=== PATIENT | male | born 1975 | race Caucasian/White ===

== ENCOUNTER 2022-03-11 11:15 | Inpatient (IN) | payer OTHER ==
[2022-03-11] MEDS ORDERED: NITROGLYCERIN SL TABS 0.4 MG TAB SUBLINGUAL STA (11:57)
--- NOTE | 2022-03-11 12:00 | ED ---
General Adult HPI - General Chief complaint: Weakness Stated complaint: rt side numbness, chest pain Time Seen by Provider: 03/11/22 11:45 Source: patient, RN notes reviewed Mode of arrival: ambulatory Limitations: no limitations - History of Present Illness Initial comments: Patient is a pleasant 46-year-old male presenting to the emergency department with concerns for right sided weakness. Onset of symptoms was 2 or 3 days ago. Patient states he has been having some chest discomfort intermittently over the past one week. As comfort is mild at this point rated 1/10. Discomfort is a chest. Patient states to 3 days ago he had problems moving his right leg, following this had problems moving his right arm. Patient states these have both been weak since that time. Patient has paresthesias there as well. No confusion. No facial weakness. Patient previously has seen Dr. Latif with cardiology. - Related Data Home Medications Medication Instructions Recorded Confirmed Fluticasone Nasal [place] [Flonase 2 spray EA NOSTRIL HS 03/11/22 03/11/22 Nasal [place]] Levothyroxine Sodium [Synthroid] 100 mcg PO DAILY 03/11/22 03/11/22 Loratadine [Claritin] 10 mg PO DAILY 03/11/22 03/11/22 Omeprazole [PriLOSEC] 20 mg PO DAILY 03/11/22 03/11/22 lisinopriL [Zestril] 10 mg PO DAILY 03/11/22 03/11/22 metFORMIN HCL [Glucophage] 1,000 mg PO BID-W/MEALS 03/11/22 03/11/22 Allergies Allergy/AdvReac Type Severity Reaction Status Date / Time amoxicillin Allergy Anaphylaxis Verified 03/11/22 12:01 shellfish derived [Shellfish] Allergy Anaphylaxis Verified 03/11/22 12:01 Review of Systems ROS Statement: Those systems with pertinent positive or pertinent negative responses have been documented in the HPI. ROS Other: All systems not noted in ROS Statement are negative. Constitutional: Denies: fever Eyes: Denies: eye pain ENT: Denies: ear pain Respiratory: Denies: cough Cardiovascular: Reports: as per HPI, chest pain Endocrine: Denies: fatigue Gastrointestinal: Denies: abdominal pain Genitourinary: Denies: dysuria Musculoskeletal: Denies: back pain Skin: Denies: rash Neurological: Reports: as per HPI, weakness. Denies: headache Past Medical History Past Medical History: Diabetes Mellitus, Hypertension History of Any Multi-Drug Resistant Organisms: None Reported Past Surgical History: No Surgical Hx Reported Smoking Status: Current every day smoker Past Alcohol Use History: None Reported Past Drug Use History: None Reported General Exam Limitations: no limitations General appearance: alert, in no apparent distress Head exam: Present: normocephalic Eye exam: Present: normal appearance, PERRL, EOMI Neck exam: Present: normal inspection. Absent: tenderness, meningismus Respiratory exam: Present: normal lung sounds bilaterally Cardiovascular Exam: Present: tachycardia Expanded Peripheral pulses: 2+: Radial (R), Radial (L), Posterior Tibialis (R), Posterior Tibialis (L), Dorsalis Pedis (R), Dorsalis Pedis (L) GI/Abdominal exam: Present: soft. Absent: tenderness Extremities exam: Present: normal inspection. Absent: pedal edema, calf tenderness Neurological exam: Present: alert, oriented X3, CN II-XII intact Expanded Neurological exam: Present: protecting the airway Speech: Present: fluid speech Cranial nerves: EOM's Intact: Normal Motor strength exam: RUE: 2/1, LUE: 5, RLE: 2/1, LLE: 5 Eye Response: (4) open spontaneously Motor Response: (6) obeys commands Verbal Response: (5) oriented Psychiatric exam: Present: normal affect, normal mood Skin exam: Present: normal color Course Vital Signs 03/11/22 03/11/22 11:25 11:50 Temperature 98.0 F Pulse Rate 119 H 96 Respiratory 18 18 Rate Blood Pressure 99/73 125/80 O2 Sat by Pulse 100 99 Oximetry - Reevaluation(s) Reevaluation #1: 03/11/22 11:58 STEMI alert was called. Dr. Boone is present and would like computed tomography scan done prior to consider catheterization 03/11/22 12:35 EKG #2 done at 1144 shows sinus tachycardia 102. Right axis. Q wave in V2 V3 with ST elevation. EKG interpreted by ED physician. 03/11/22 12:36 Call from radiologist with concern for acute subacute infarct in the left and occlusion left ICA. No evidence of aortic dissection 03/11/22 12:45 Patient currently with no chest pain. Case again discussed with Dr. Boone who does not feel patient needs to urgently go to [facility]. He does prefer patient to have heparinization. Therefore neural interventional is being contacted at this time. 03/11/22 12:54 Case was discussed with Dr. Hernandez who did evaluate the patient. Case also discussed with Dr. Falk who will review films and call back. 03/11/22 13:17 Case again discussed with Dr. Falk who does not feel patient will benefit from immediate intervention with him. He does recommend low dose heparin with no bolus. Recommend keeping PTT between 40 and 60. Also recommends aspirin, Plavix, and Lipitor. Patient again reevaluated. Patient is updated. Patient is agreeable to having heparin. Patient is made specifically aware of risk for bleeding conversion with heparin. Patient does demonstrate medical decision making. EKG Findings - EKG Results: EKG: interpreted by LILIAND (Q wave in V2 V3 with ST elevation. Right axis.), sinus rhythm EKG shows: tachycardia Medical Decision Making - Lab Data Result diagrams: 03/11/22 11:50 03/11/22 11:50 Lab Results 03/11/22 03/11/22 03/11/22 Range/Units 11:50 11:50 11:50 WBC 13.4 H (3.8-10.6) k/uL RBC 4.60 (4.30-5.90) m/uL Hgb 13.7 (13.0-17.5) gm/dL Hct 40.4 (39.0-53.0) % MCV 87.8 (80.0-100.0) fL MCH 29.7 (25.0-35.0) pg MCHC 33.9 (31.0-37.0) g/dL RDW 13.7 (11.5-15.5) % Plt Count 363 (150-450) k/uL MPV 7.9 Neutrophils % 67 % Lymphocytes % 20 % Monocytes % 9 % Eosinophils % 1 % Basophils % 1 % Neutrophils # 9.0 H (1.3-7.7) k/uL Lymphocytes # 2.7 (1.0-4.8) k/uL Monocytes # 1.2 H (0-1.0) k/uL Eosinophils # 0.2 (0-0.7) k/uL Basophils # 0.1 (0-0.2) k/uL PT 10.0 (9.0-12.0) sec INR 0.9 (<1.2) APTT 24.5 (22.0-30.0) sec Sodium 140 (137-145) mmol/L Potassium 5.3 H (3.5-5.1) mmol/L Chloride 111 H (98-107) mmol/L Carbon Dioxide 20 L (22-30) mmol/L Anion Gap 9 mmol/L BUN 18 (9-20) mg/dL Creatinine 1.01 (0.66-1.25) mg/dL Est GFR (CKD-EPI)AfAm >90 (>60 ml/min/1.73 sqM) Est GFR (CKD-EPI)NonAf 90 (>60 ml/min/1.73 sqM) Glucose 150 H (74-99) mg/dL Calcium 9.4 (8.4-10.2) mg/dL Total Bilirubin 0.9 (0.2-1.3) mg/dL AST 170 H (17-59) U/L ALT 59 H (4-49) U/L Alkaline Phosphatase 124 (38-126) U/L Troponin I (0.000-0.034) ng/mL Total Protein 8.7 H (6.3-8.2) g/dL Albumin 4.5 (3.5-5.0) g/dL 03/11/22 Range/Units 11:50 WBC (3.8-10.6) k/uL RBC (4.30-5.90) m/uL Hgb (13.0-17.5) gm/dL Hct (39.0-53.0) % MCV (80.0-100.0) fL MCH (25.0-35.0) pg MCHC (31.0-37.0) g/dL RDW (11.5-15.5) % Plt Count (150-450) k/uL MPV Neutrophils % % Lymphocytes % % Monocytes % % Eosinophils % % Basophils % % Neutrophils # (1.3-7.7) k/uL Lymphocytes # (1.0-4.8) k/uL Monocytes # (0-1.0) k/uL Eosinophils # (0-0.7) k/uL Basophils # (0-0.2) k/uL PT (9.0-12.0) sec INR (<1.2) APTT (22.0-30.0) sec Sodium (137-145) mmol/L Potassium (3.5-5.1) mmol/L Chloride (98-107) mmol/L Carbon Dioxide (22-30) mmol/L Anion Gap mmol/L BUN (9-20) mg/dL Creatinine (0.66-1.25) mg/dL Est GFR (CKD-EPI)AfAm (>60 ml/min/1.73 sqM) Est GFR (CKD-EPI)NonAf (>60 ml/min/1.73 sqM) Glucose (74-99) mg/dL Calcium (8.4-10.2) mg/dL Total Bilirubin (0.2-1.3) mg/dL AST (17-59) U/L ALT (4-49) U/L Alkaline Phosphatase (38-126) U/L Troponin I 53.000 H* (0.000-0.034) ng/mL Total Protein (6.3-8.2) g/dL Albumin (3.5-5.0) g/dL - Radiology Data Radiology results: report reviewed (CT brain as discussed with radiologist shows left sided hypodensity showing acute subacute infarct. CTA shows left internal carotid artery occlusion. Aorta without evidence of dissection.) Interpreted by me: Chest x-ray shows no acute process Critical Care Time Critical Care Time: Yes Total Critical Care Time: 55 Disposition Clinical Impression: Acute CVA (cerebrovascular accident), Myocardial infarction Disposition: ADMITTED IP TO THIS [facility] Condition: Critical Is patient prescribed a controlled substance at d/c from ED?: No Referrals: Osvaldo Carr DO [Primary Care Provider] - 1-2 days Time of Disposition: 13:19
[2022-03-11 12:05] LABS: Basophils # (A) 0.1 k/uL (0-0.2); Basophils % (A) 1 %; Eosinophils # (A) 0.2 k/uL (0-0.7); Eosinophils % (A) 1 %; HCT 40.4 % (39.0-53.0); HGB 13.7 gm/dL (13.0-17.5); Lymphocytes # (A) 2.7 k/uL (1.0-4.8); Lymphocytes % (A) 20 %; MCH 29.7 pg (25.0-35.0); MCHC 33.9 g/dL (31.0-37.0); MCV 87.8 fL (80.0-100.0); Mean Platelet Volume 7.9; Monocytes # (A) 1.2 k/uL (0-1.0); Monocytes % (A) 9 %; Neutrophils % (A) 67 %; Platelet Count 363 k/uL (150-450); RDW 13.7 % (11.5-15.5); WBC 13.4 k/uL (3.8-10.6)
--- NOTE | 2022-03-11 12:16 | P.CRDCN ---
History of Present Illness History of present illness: HISTORY OF PRESENTING ILLNESS This is a pleasant 46-year-old with past medical history significant for hypertension, diabetes mellitus type 2, tobacco abuse, family history of CAD. He follows in the office with Dr Olson. He states he has been having off-and-on chest pain over last 1 week. The chest pain started and then unfortunately he also had right upper and right lower extremity weakness. He has never had symptoms similar to this in the past. He stayed at home and was unable to walk and fell once or twice. He denies any back or head trauma. He does have a strong family history of CAD. EKG shows sinus rhythm with Q waves V1-V3 and I and aVL with ST elevations. He was given Nitro x 1 and states his chest pain has resolved. He additionally notes he has been somewhat lightheaded as well as off-balance. REVIEW OF SYSTEMS At the time of my exam: CONSTITUTIONAL: Denies fever or chills. CARDIOVASCULAR:+chest pain, no shortness of breath, orthopnea, PND or palpitations. RESPIRATORY: Denies cough. GASTROINTESTINAL: Denies abdominal pain, diarrhea, constipation, nausea or vomiting. MUSCULOSKELETAL: Denies myalgias. NEUROLOGIC: +RUE and RLE numbness ENDOCRINE: Denies fatigue, weight change, polydipsia or polyurina. GENITOURINARY: Denies burning, hematuria or urgency with micturation. HEMATOLOGIC: Denies history of anemia or bleeding. PHYSICAL EXAMINATION Vital signs reviewed. CONSTITUTIONAL: No apparent distress, +right hemiparesis HEENT: Head is normocephalic. Pupils are equal, round. Sclerae anicteric. Mucous membranes of the mouth are moist. No JVD. No carotid bruit. CHEST EXAMINATION: Lungs are clear to auscultation. No chest wall tenderness is noted on palpation or with deep breathing. HEART EXAMINATION: Regular rate and rhythm. S1, S2 heard. No murmurs, gallops or rub. ABDOMEN: Soft, nontender. Positive bowel sounds. EXTREMITIES: 2+ peripheral pulses, no lower extremity edema and no calf tenderness. NEUROLOGIC EXAMINATION: Patient is awake, alert and oriented x3. ASSESSMENT 1. Late presenting anterolateral STEMI, appears may have completed infarct with Q waves on EKG. Currently chest pain free since nitro 2. Acute right upper and lower extremity weakness most consistent with acute stroke. Rule out thromboembolism from possible apical thrombus versus other 3. Tobacco abuse 4. Strong family history CAD 5. Lightheadedness PLAN Patient with chest pain 1 week ago and EKG concerning for completed infarct. Concern of possible ischemic cardiomyopathy and apical thrombus causing thromboembolism and stroke. Patient currently chest pain-free after nitro. Chest pain may additionally be related to post infarct pain. Check urgent 2D echo. Discussed with ER physician and agree with CTA to evaluate for any dissection. If patient not having active chest pain no emergency cath. If CT brain showing no hemmorhage start heparin drip. Neurology evaluation. Further recommendations to follow. Past Medical History Past Medical History: Diabetes Mellitus, Hypertension History of Any Multi-Drug Resistant Organisms: None Reported Past Surgical History: No Surgical Hx Reported Smoking Status: Current every day smoker Past Alcohol Use History: None Reported Past Drug Use History: None Reported Medications and Allergies Allergies Allergy/AdvReac Type Severity Reaction Status Date / Time amoxicillin Allergy Anaphylaxis Verified 03/11/22 12:01 shellfish derived [Shellfish] Allergy Anaphylaxis Verified 03/11/22 12:01 Physical Exam Vitals: Vital Signs Temp Pulse Resp BP Pulse Ox 03/11/22 11:50 96 18 125/80 99 03/11/22 11:25 98.0 F 119 H 18 99/73 100 Intake and Output 03/10/22 03/11/22 03/11/22 22:59 06:59 14:59 Other: Weight 66.678 kg Results Intake and Output 03/10/22 03/11/22 03/11/22 22:59 06:59 14:59 Other: Weight 66.678 kg Patient Weight 03/12/22 06:59 Weight 66.678 kg
--- NOTE | 2022-03-11 12:17 | XR ---
EXAMINATION TYPE: XR chest 1V portable DATE OF EXAM: 03/11/2022 Comparison: 02/06/2013 Clinical History: 46-year-old male confusion, altered mental status, chest pain Findings: Multiple leads project over the chest. The cardiomediastinal silhouette, aorta, and pulmonary vascul ature are within normal limits. Lungs and pleural spaces are clear. Impression: No acute cardiopulmonary process.
--- NOTE | 2022-03-11 12:33 | CT ---
EXAMINATION TYPE: CT brain wo con for TPA DATE OF EXAM: 03/11/2022 COMPARISON: None HISTORY: 46-year-old male, Neuro deficits, acute, stroke suspected TECHNIQUE: Examination was done in axial plane without intravenous contrast. Coronal and sagittal r econstructions performed. CT DLP: 1147.6 mGycm Automated exposure control for dose reduction was used. FINDINGS: There is focal subcortical hypodensity in the posterior left parietal lobe, axial image 35. Additiona l cortical and subcortical hypodensity along the medial left frontoparietal junction and left parafal cine region as well as the adjacent lateral and superior left frontal lobe. Suggesting of an lacunar infarct in the caudate head on the left. Benign bilateral basal ganglionic c alcifications. No evidence for acute intracranial hemorrhage, mass effect, midline shift, or extra-axial fluid colle ction. No hydrocephalus. No effacement of cerebral sulci or basal subarachnoid cisterns. Slight leftward nasal septal deviation. Visualized paranasal sinuses and mastoid air cells are well p neumatized. Orbits and globes are intact. IMPRESSION: Subcortical hypodensity posterior left parietal lobe along with cortical/subcortical hypodensities me dial left frontoparietal junction, left parafalcine region, and adjacent lateral/superior left fronta l lobe. Correlate for acute to subacute infarcts. No midline shift, herniation, or acute intracranial hemorrhage. Findings called to Dr. Monaco in the ER at 12:30 PM.
[2022-03-11 12:37] LABS: ALT 59 U/L (4-49); AST 170 U/L (17-59); African American GFR (CKD) >90 (>60 ml/min/1.73 sqM); Albumin 4.5 g/dL (3.5-5.0); Alkaline Phosphatase 124 U/L (38-126); Anion Gap 9 mmol/L; Blood Urea Nitrogen 18 mg/dL (9-20); Calcium 9.4 mg/dL (8.4-10.2); Carbon Dioxide 20 mmol/L (22-30); Chloride 111 mmol/L (98-107); Glucose 150 mg/dL (74-99); Non-African American GFR(CKD) 90 (>60 ml/min/1.73 sqM); Sodium 140 mmol/L (137-145); Total Bilirubin 0.9 mg/dL (0.2-1.3); Total Protein 8.7 g/dL (6.3-8.2)
[2022-03-11 12:38] LABS: Potassium 5.3 mmol/L (3.5-5.1)
[2022-03-11 12:39] LABS: INR 0.9 (<1.2)
[2022-03-11 12:40] LABS: Partial Thromboplastin Time 24.5 sec (22.0-30.0)
--- NOTE | 2022-03-11 12:44 | CT ---
EXAMINATION TYPE: CT angio head neck DATE OF EXAM: 03/11/2022 COMPARISON: None HISTORY: 46-year-old male utilizing deficit, acute, stroke suspected. Onset symptoms 3 days ago along with chest pain. TECHNIQUE: Contiguous axial scanning of the head and neck performed with IV Contrast, patient injecte d with 85 mL of Isovue 370. Coronal/sagittal reconstructions performed. 3 reconstructions generated o n a dedicated independent workstation. CT DLP: 412.6 Automated exposure control for dose reduction was used. FINDINGS: NECK: There are some prominent lymph nodes in the [place] measuring up to 1.2 cm and subcarinal measuring 1.2 cm as well. Prominent breathing motion in the visualized upper lungs with minimal emphysematous change and mild b iapical pleural-parenchymal scarring. There is bovine configuration to the aortic arch. Of the visualized aortic arch, no aortic dissection is seen. The vertebral arteries are codominant and patent throughout the course. The right common and right internal carotid artery are widely patent by NASCET criteria. The left common carotid artery is patent. There is occlusion of the proximal left ICA, 1 cm above its origin. Nonopacification of the ICA. HEAD: The vertebral and basilar arteries as well as the remainder of the posterior circulation are patent. The right ICA it is patent. The left ICA is occluded and nonopacified through its glenoid segment. It reconstitutes from its opht halmic segment likely from collateral flow from the anterior and posterior communicating arteries. Re mainder of the anterior circulation is patent. No aneurysmal changes identified. IMPRESSION: NECK: 1. PROXIMAL LEFT ICA OCCLUSION, 1 CM ABOVE ITS ORIGIN. 2. NO AORTIC DISSECTION SEEN AT THE LEVEL OF THE AORTIC ARCH. 3. NO OTHER HEMODYNAMICALLY SIGNIFICANT CAROTID OR VERTEBRAL ARTERY STENOSIS IN THE NECK. HEAD: 4. LEFT ICA OCCLUSION BUT WITH RECONSTITUTION AT THE OPHTHALMIC SEGMENT AND DISTALLY LIKELY FROM RETR OGRADE FLOW FROM THE ANTERIOR AND POSTERIOR COMMUNICATING ARTERIES. 5. THE REMAINDER OF THE ANTERIOR AND POSTERIOR CIRCULATIONS OPACIFY NORMALLY. CRITICAL FINDINGS DISCUSSED WITH DR. CHAVEZ IN THE ER OVER THE PHONE AT 12:30 PM.
[2022-03-11] MEDS ORDERED: ASPIRIN 81 MG PO STA (13:20)
[2022-03-11] MEDS: HEPARIN SOD,PORK IN 0.45% NACL 25,000 UNIT in 0.45% NACL 1 250ML.BAG IV SCH (14:09)
[2022-03-11] MEDS ORDERED: ALPRAZolam 0.25 MG TAB PO PRN (14:09)
[2022-03-11] MEDS: CLOPIDOGREL 75 MG TAB PO SCH (14:10)
[2022-03-11] MEDS: ATORVASTATIN 80 MG TAB PO SCH (14:10)
--- NOTE | 2022-03-11 14:28 | P.CNNES ---
History of Present Illness Consult date: 03/11/22 Requesting physician: Gio Monaco Reason for Consult: cva History of Present Illness: This is a 46-year-old gentleman with history of diabetes, hypertension and tobacco use who presented because of right-sided weakness and chest pain. Time of onset is about 8 days ago. Patient noticed right lower extremity weakness about a days ago and he felt was a pinched nerve then about 3 days ago he had a fall and noticed weakness in the right upper extremity and felt that the weakness is progressively been getting worse. He also had chest pain about 8 days ago. He denies of any numbness any difficulty getting his words out any visual disturbance. Denies being on any antiplatelet or anticoagulation. He sporadically takes aspirin but not on a daily basis. He smokes close to a quater a pack a day. Because of his worsening weakness and chest pain he decided to seek medical management. Some of the workup during his hospital visit consisted of: Initial vital signs his blood pressure of 99/73, heart rate of 119, respiratory of 18, temperature of 98.0 Fahrenheit oral and pulse ox of 100% at room air. Repeated blood pressure is 135/80 Initial white blood cells 13.4 thousand minimally slightly neutrophilic Initial serum glucose is 150, AST of 170 ALT is 59 potassium 5.3. Initial troponin is 53. EKG is reported as sinus tachycardia. Anterolateral myocardial infarction probably recent. Acute MA CT of the head is reported as subcortical hypodensity posterior left parietal lobe with cortical/subcortical hypodensity medial left frontal parietal junction, left parafalcine region and adjacent to the lateral/superior left frontal lobe. Correlate for acute to subacute infarct. No midline shift. No herniation or acute intracranial hemorrhage. I personally reviewed that CT now agree with the report and I feel changes seem more subacute. CT angiography of the head is reported as proximal left ICA occlusion, 1 cm above its origin. No urinary or dissection seen at the level of the aortic arch. No other hemodynamically significant carotid or vertebral artery stenosis in the neck. CT angiography of the head is reported as left ICA occlusion but with reconstitution at the ophthalmic segment and distally likely from the retrograde flow from the anterior and posterior communicating artery. The remainder of the anterior and posterior circulation opacity normal. The ED discussed the case with the interventional neurology team (Dr. Falk) per ED notes in the interferential neurologist does not recommend any immediateintervention. Because of his elevated troponin and likely use can go for the cast he recommended the no bolus for heparin and to keep the PTT between 40 and 60. And recommended aspirin and Plavix as well as Lipitor. No IV tpa since outside the window and risk outweigh the benefit. Review of Systems Review of system: The 12 point system was reviewed and apparent positive and negative per HPI. Past Medical History Past Medical History: Diabetes Mellitus, Hypertension History of Any Multi-Drug Resistant Organisms: None Reported Past Surgical History: No Surgical Hx Reported Smoking Status: Current every day smoker Past Alcohol Use History: None Reported Past Drug Use History: None Reported Medications and Allergies Home Medications Medication Instructions Recorded Confirmed Type Fluticasone Nasal [place] [Flonase 2 spray EA NOSTRIL HS 03/11/22 03/11/22 History Nasal [place]] Levothyroxine Sodium [Synthroid] 100 mcg PO DAILY 03/11/22 03/11/22 History Loratadine [Claritin] 10 mg PO DAILY 03/11/22 03/11/22 History Omeprazole [PriLOSEC] 20 mg PO DAILY 03/11/22 03/11/22 History lisinopriL [Zestril] 10 mg PO DAILY 03/11/22 03/11/22 History metFORMIN HCL [Glucophage] 1,000 mg PO BID-W/MEALS 03/11/22 03/11/22 History Allergies Allergy/AdvReac Type Severity Reaction Status Date / Time amoxicillin Allergy Anaphylaxis Verified 03/11/22 12:01 shellfish derived [Shellfish] Allergy Anaphylaxis Verified 03/11/22 12:01 Physical Examination - Vital Signs Vital Signs: Vital Signs Temp Pulse Resp BP Pulse Ox 03/11/22 11:50 96 18 125/80 99 03/11/22 11:25 98.0 F 119 H 18 99/73 100 Intake and Output 03/10/22 03/11/22 03/11/22 22:59 06:59 14:59 Other: Weight 66.678 kg GENERAL: The patient is lying in bed and is not in acute distress. CHEST: The heart rate is regular rate rhythm. No murmurs to auscultation. LUNG: Clear to auscultation bilaterally no wheezing noted throughout. Not labored breathing. ABDOMEN/GI: Bowel sounds present in all 4 quadrants. No tenderness to palpation throughout. NEUROLOGICAL: Higher mental function: The patient is awake, alert, oriented to self, place and time. Patient is following commands. No aphasia and no neglect. Cranial nerves: The pupils are round, equal and reactive to light and accommodation. Visual banks are full to confrontation throughout. Extraocular movement is intact no nystagmus is noted. Facial sensation is normal to touch throughout. The facial strength is normal throughout. Hearing is normal bilaterally to hand rub. Tongue is midline and moved [id number] without any difficulty. No dysarthria is noted. Shoulder severely weak over the right upper while normal over the left. Motor: The strength is somewhat hard to assess since patient was agitated on performing exam. But patient hand hand movement and able to make a fist but unable to lift right upper and move it sided to side. Is able to lift right lower above gravity. Left is 5 over 5 throughout. Slightly decrease tone over the right. Normal bulk. Cerebellum: Unable to assess left because of IV line while the right is weak. Sensation: Sensation is normal to touch throughout. Reflexes (right/left): 3+ over the right while left is 2+. Plantars are upgoing bilaterally. Results - Laboratory Findings CBC and BMP: 03/11/22 11:50 03/11/22 11:50 Abnormal Lab Findings: Abnormal Labs 03/11/22 03/11/22 03/11/22 11:50 11:50 11:50 WBC 13.4 H Neutrophils # 9.0 H Monocytes # 1.2 H Potassium 5.3 H Chloride 111 H Carbon Dioxide 20 L Glucose 150 H AST 170 H ALT 59 H Troponin I 53.000 H* Total Protein 8.7 H Assessment and Plan Assessment: This is a 46-year-old gentleman with weakness of the right side initially started with the right lower about a days ago with a progressively worsened to the right upper and had a fall about 3 days ago as a result as well as he has chest pain for the past 8 days. Acute to subacute ischemic stroke (feel more subacute). Presented with right sided hemiparesis about 8 days (right upper is worse than lower). Etiology seems embolic (artery to artery vs cardiac). 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 Patient is currently on aspirin 325 daily as well as Plavix 75 mg daily both the new (recommend by interventional neurologist, Dr. Falk). Also on Lipitor 80mg daily. Also was recommended by the neuro interventional to pursue with heparin drip if needed but to avoid boluses and keep the PTT between 40 and 60. Will try to obtain MRI Brain and if not will get repeat CT by tomorrow. Consulted vascular surgery team I'll get a carotid duplex 2-D echo, lipid panel is ordered. PT OT and GAMEROOM TECHNICIAN are consulted Continue neuro checks On cardiac Cardiology is on board Patient is counseled on tobacco cessation. For DVT prophylaxis patient is on heparin drip. Condition is very guarded The plan is discussed with patient and his brother (who is at bedside). Also discussed with N.P. from vascular surgery team. Thank you for the consultation Time with Patient: Greater than 30
--- NOTE | 2022-03-11 14:45 | P.GSCN ---
History of Present Illness Consult date: 03/11/22 Reason for Consult: Carotid stenosis Requesting physician: Edgardo Muñiz History of present illness: This is a 46-year-old male who presented to the emergency department with complaints of right-sided weakness and chest pain. Patient states chest pain began about 8 days ago, and was intermittent. He then had right lower extremity weakness that continued, which he thought was a pinched nerve. About 3 days ago he had chest pain again, continued weakness in the right lower extremity he fell and then followed by right upper extremity weakness and flaccidity. He denies any previous past medical history, he smokes about 5-6 cigarettes a day. On admission he was noted to have abnormal EKG with EKG infarct, STEMI. Cardiology is following closely. They are starting patient on a heparin drip. Patient currently denies any chest pain, he was given nitro in the ER and states chest pain pressure had resolved. She had a CT of the brain reporting left infarct frontoparietal lobe. CT angiogram head and neck, shows that the right ICA is patent, left ICA is occluded 1 cm above the origin. Vascular surgery was co nsulted for ICA stenosis. He currently has no mobility of his right upper extremity, he is able to make his hand into a fist but that is all. His right lower extremity he is able to move and flex that knee and ankle. He is having difficulty with raising off the bed. Patient has facial symmetry, speech is fluent and he states he is not having any difficulty with drinking. He denies any other focal deficits such as vision loss, difficulty with his speech or difficulty swallowing. Review of Systems A 14 point review systems was completed all pertinent positives and negatives as stated in the HPI. Past Medical History Past Medical History: Diabetes Mellitus, Hypertension History of Any Multi-Drug Resistant Organisms: None Reported Past Surgical History: No Surgical Hx Reported Smoking Status: Current every day smoker Past Alcohol Use History: None Reported Past Drug Use History: None Reported Medications and Allergies Home Medications Medication Instructions Recorded Confirmed Type Fluticasone Nasal [place] [Flonase 2 spray EA NOSTRIL HS 03/11/22 03/11/22 History Nasal [place]] Levothyroxine Sodium [Synthroid] 100 mcg PO DAILY 03/11/22 03/11/22 History Loratadine [Claritin] 10 mg PO DAILY 03/11/22 03/11/22 History Omeprazole [PriLOSEC] 20 mg PO DAILY 03/11/22 03/11/22 History lisinopriL [Zestril] 10 mg PO DAILY 03/11/22 03/11/22 History metFORMIN HCL [Glucophage] 1,000 mg PO BID-W/MEALS 03/11/22 03/11/22 History Allergies Allergy/AdvReac Type Severity Reaction Status Date / Time amoxicillin Allergy Anaphylaxis Verified 03/11/22 12:01 shellfish derived [Shellfish] Allergy Anaphylaxis Verified 03/11/22 12:01 Surgical - Exam Vital Signs Temp Pulse Resp BP Pulse Ox 98.0 F 119 H 18 99/73 100 03/11/22 11:25 03/11/22 11:25 03/11/22 11:25 03/11/22 11:25 03/11/22 11:25 General appearance: The patient is alert, oriented, appears in no acute distress. HET: Head is normocephalic and atraumatic. Pupils are equal and reactive. Neck: Supple without lymphadenopathy. Trachea midline. No audible carotid bruit. Heart: Regular. Lungs: Equal expansion, normal respiratory effort. Abdomen: Soft, nontender, nondistended. Extremities: Normal skin color and turgor. No cyanosis, rash, ulceration, clubbing, or edema. Neurological: Right upper extremity flaccid, patient is able to make of this. Right lower extremity weakness is able to flex ankle and knee. Patient has facial symmetry, tongue protrudes midline he is able to follow commands in speech is fluent. Results - Labs 03/11/22 11:50 03/11/22 11:50 Abnormal Lab Results - Last 24 Hours (Table) 03/11/22 03/11/22 03/11/22 Range/Units 11:50 11:50 11:50 WBC 13.4 H (3.8-10.6) k/uL Neutrophils # 9.0 H (1.3-7.7) k/uL Monocytes # 1.2 H (0-1.0) k/uL Potassium 5.3 H (3.5-5.1) mmol/L Chloride 111 H (98-107) mmol/L Carbon Dioxide 20 L (22-30) mmol/L Glucose 150 H (74-99) mg/dL AST 170 H (17-59) U/L ALT 59 H (4-49) U/L Troponin I 53.000 H* (0.000-0.034) ng/mL Total Protein 8.7 H (6.3-8.2) g/dL Diabetes panel 03/11/22 Range/Units 11:50 Sodium 140 (137-145) mmol/L Potassium 5.3 H (3.5-5.1) mmol/L Chloride 111 H (98-107) mmol/L Carbon Dioxide 20 L (22-30) mmol/L BUN 18 (9-20) mg/dL Creatinine 1.01 (0.66-1.25) mg/dL Glucose 150 H (74-99) mg/dL Calcium 9.4 (8.4-10.2) mg/dL AST 170 H (17-59) U/L ALT 59 H (4-49) U/L Alkaline Phosphatase 124 (38-126) U/L Total Protein 8.7 H (6.3-8.2) g/dL Albumin 4.5 (3.5-5.0) g/dL Calcium panel 03/11/22 Range/Units 11:50 Calcium 9.4 (8.4-10.2) mg/dL Albumin 4.5 (3.5-5.0) g/dL Pituitary panel 03/11/22 Range/Units 11:50 Sodium 140 (137-145) mmol/L Potassium 5.3 H (3.5-5.1) mmol/L Chloride 111 H (98-107) mmol/L Carbon Dioxide 20 L (22-30) mmol/L BUN 18 (9-20) mg/dL Creatinine 1.01 (0.66-1.25) mg/dL Glucose 150 H (74-99) mg/dL Calcium 9.4 (8.4-10.2) mg/dL Adrenal panel 03/11/22 Range/Units 11:50 Sodium 140 (137-145) mmol/L Potassium 5.3 H (3.5-5.1) mmol/L Chloride 111 H (98-107) mmol/L Carbon Dioxide 20 L (22-30) mmol/L BUN 18 (9-20) mg/dL Creatinine 1.01 (0.66-1.25) mg/dL Glucose 150 H (74-99) mg/dL Calcium 9.4 (8.4-10.2) mg/dL Total Bilirubin 0.9 (0.2-1.3) mg/dL AST 170 H (17-59) U/L ALT 59 H (4-49) U/L Alkaline Phosphatase 124 (38-126) U/L Total Protein 8.7 H (6.3-8.2) g/dL Albumin 4.5 (3.5-5.0) g/dL Assessment and Plan Assessment: 1. Right-sided weakness, hemiparesis. Acute/subaute stroke 2. Left ICA occlusion 3. STEMI 4. Tobacco abuse Plan: 1. Agree with aspirin, Plavix and high-dose statin 2. Tobacco cessation 3. Carotid duplex ordered, F carotid duplex confirms left ICA occlusion no further workup and no intervention indicated from vascular surgery 4. Continue with recommendations from neurology 5. Continue with recommendations from cardiology 6. PT/OT/ST 7. Further recommendations forthcoming from vascular surgery Thank you for this consultation, we will follow along with you. The impression and plan of care has been dictated as directed. I performed a history and examination of this patient, discussed the same with the dictator. I agree with the dictator's note ,documented as a scribe. Any additional findings or plans will be noted.
[2022-03-11 14:57] LABS: Glucose,Whole Blood 131 mg/dL (70-110)
--- NOTE | 2022-03-11 15:09 | P.CNPUL ---
History of Present Illness Consult date: 03/11/22 Requesting physician: Gio Monaco Reason for consult: other (acute CVA, icu admission.) Chief complaint: right sided weakness History of present illness: this is a 46-year-old white male with history of hypertension and diabetes, history of tobacco use, patient smokes on the average of 57 cigarettes per day. 8 days ago, the patient developed weakness in his right lower extremity, and he felt like it was a pinched nerve. 3 days ago he fell, and he noticed weakness in the right upper extremity. His weakness has been getting worse over the last few days, and the patient has been falling. Also a days ago he had an episode of chest pain. Finally the patient presented to the ER today, and he was evaluated for possible stroke. His workup in the ER included a CT of the head which showed subcortical hypodensity posterior left parietal lobe cortical subcortical hypodensity medial left frontal parietal junction consistent with subacute infarct. CT angiography of the head showed left ICA occlusion EKG showed sinus tachycardia and possible anterolateral myocardial infarction/recent. Patient was seen already by different consultants in the ER, including neurology, cardiology, and vascular surgery. I saw the patient mostly he needed to be admitted to the ICU, patient was not felt to be a candidate for thrombolytic therapy, the recommendation by neurology was to start the patient on low-dose heparin. Patient will be started on low-dose heparin, and I would accept him as an admission to the ICU. Patient is clearly outside the IV TPA window. Review of Systems constitutional: Negative HEENT: Negative Head: Negative Cardiac: Chest pain 8 days ago, no active chest pain at present no palpitations no orthopnea. Pulmonary: Negative GI: Negative Genitourinary: Negative Neurologic: As noted in HPI/right sided weakness Endocrine: History of type 2 diabetes Psychiatric: Negative hematologic: Negative no history of DVT and no history of thromboembolic disease. Past Medical History Past Medical History: Diabetes Mellitus, Hypertension History of Any Multi-Drug Resistant Organisms: None Reported Past Surgical History: No Surgical Hx Reported Smoking Status: Current every day smoker Past Alcohol Use History: None Reported Past Drug Use History: None Reported Medications and Allergies Home Medications Medication Instructions Recorded Confirmed Type Fluticasone Nasal [place] [Flonase 2 spray EA NOSTRIL HS 03/11/22 03/11/22 History Nasal [place]] Levothyroxine Sodium [Synthroid] 100 mcg PO DAILY 03/11/22 03/11/22 History Loratadine [Claritin] 10 mg PO DAILY 03/11/22 03/11/22 History Omeprazole [PriLOSEC] 20 mg PO DAILY 03/11/22 03/11/22 History lisinopriL [Zestril] 10 mg PO DAILY 03/11/22 03/11/22 History metFORMIN HCL [Glucophage] 1,000 mg PO BID-W/MEALS 03/11/22 03/11/22 History Allergies Allergy/AdvReac Type Severity Reaction Status Date / Time amoxicillin Allergy Anaphylaxis Verified 03/11/22 12:01 shellfish derived [Shellfish] Allergy Anaphylaxis Verified 03/11/22 12:01 Physical Exam Vitals: Vital Signs Temp Pulse Resp BP Pulse Ox 03/11/22 13:40 87 18 121/97 100 03/11/22 13:20 94 18 107/81 100 03/11/22 13:00 89 18 105/79 99 03/11/22 12:40 87 18 104/76 98 03/11/22 12:20 104 H 18 119/82 100 03/11/22 12:00 111 H 19 136/104 100 03/11/22 11:50 96 18 125/80 99 03/11/22 11:47 103 H 10 L 03/11/22 11:25 98.0 F 119 H 18 99/73 100 Intake and Output 03/10/22 03/11/22 03/11/22 22:59 06:59 14:59 Other: Weight 66.678 kg Physical Exam: Revealed 46-year-old white male in no distress on room air. Head: Atraumatic, normocephalic. HEENT:[Neck is supple.] [No neck masses.] [No thyromegaly.] [No JVD.] Chest: [Clear throughout, no crackles, no rhonchi, no wheezes.] Cardiac Exam: [Normal S1 and S2, no S3 gallop, no murmur.] Abdomen: [Soft, nontender, no megaly, no rebound, no guarding, normal bowel sounds.] Extremities: [No clubbing, no edema, no cyanosis.] Neurological Exam: alert oriented to place and time, follows simple instructions, no evidence of aphasia or neglect. Dense hemiplegia noted in the right upper extremity and in the right lower extremity could barely elevate right lower extremity above the gravity. Left side is basically unremarkable. Psychiatric: Normal mood, affect and normal mental status examination. Skin: No rashes. Results - Laboratory Findings CBC and BMP: 03/11/22 11:50 03/11/22 11:50 PT/INR, D-dimer PT 10.0 sec (9.0-12.0) 03/11/22 11:50 INR 0.9 (<1.2) 03/11/22 11:50 Abnormal lab findings: Abnormal Labs 03/11/22 03/11/22 03/11/22 11:50 11:50 11:50 WBC 13.4 H Neutrophils # 9.0 H Monocytes # 1.2 H Potassium 5.3 H Chloride 111 H Carbon Dioxide 20 L Glucose 150 H AST 170 H ALT 59 H Troponin I 53.000 H* Total Protein 8.7 H - Diagnostic Findings Additional studies: different studies as noted earlier in HPI Assessment and Plan Assessment: impression: Subacute ischemic stroke, presenting with right sided weakness Left internal carotid artery occlusion recent anterolateral ST elevation myocardial infarction is strongly suspected. Possible thromboembolic disease, echocardiogram is pending to rule out apical thrombus Tobacco dependence syndrome Benign essential hypertension Type 2 diabetes recommendation:patient was seen in the emergency room in trauma 1 Will admit the patient to the ICU Continue heparin continue aspirin Continue Plavix Continue nitroglycerin GI prophylaxis Resume home meds including blood pressure medication Nicotine patches Will follow closely. Time with Patient: Greater than 30
[2022-03-11] MEDS: METOPROLOL TARTRATE 25 MG TAB PO SCH ×2 (15:37→20:24)
[2022-03-11] MEDS: SODIUM CHLORIDE 0.9% 1,000 ML IV SCH ×2 (15:37→23:00)
[2022-03-11] MEDS: NICOTINE 14MG/24HR PATCH TRANSDERM SCH (15:37)
--- NOTE | 2022-03-11 18:03 | US ---
EXAMINATION TYPE: US carotid duplex BILAT DATE OF EXAM: 03/11/2022 COMPARISON: NONE CLINICAL HISTORY: right sided weakness, acute infarct. TECHNIQUE: Carotid duplex ultrasound examination. Indirect Doppler criteria was utilized. FINDINGS: EXAM MEASUREMENTS: RIGHT: Peak Systolic Velocity (PSV) cm/sec ----- Right CCA: 76.9 ----- Right ICA: 62.4 ----- Right ECA: 44.8 ICA/CCA ratio: 0.8 RIGHT: End Diastole cm/sec ----- Right CCA: 39.1 ----- Right ICA: 31.8 ----- Right ECA: 12.6 LEFT: Peak Systolic Velocity (PSV) cm/sec ----- Left CCA: 48.8 ----- Left ICA: -- ----- Left ECA: 84.5 ICA/CCA ratio: -- LEFT: End Diastole cm/sec ----- Left CCA: 17.1 ----- Left ICA: -- ----- Left ECA: 27.6 VERTEBRALS (direction of flow): Right Vertebral: Antegrade Left Vertebral: Antegrade [employer] NOTES: Occlusion of the left ICA proximal to distal. No other significant stenosis visua lized IMPRESSION: 1. Obstruction of the left internal carotid artery. Consider CTA or angiography to evaluate for criti monica stenosis. 2. Intimal thickening present bilaterally. Criteria for Assigning % of Stenosis / Diameter reduction (Estimation based on the indirect measurements of the internal carotid artery velocities (ICA PSV). 1. Normal (no stenosis)=ICA PSV < 125 cm/s: ratio < 2.0: ICA EDV<40 cm/s. 2. Less than 50% stenosis=ICA PSV < 125 cm/s: ratio < 2.0: ICA EDV<40 cm/s. 3. 50 to 69% stenosis=ICA PSV of 125 to 230 cm/s: ration 2.0 ? 4.0: ICA EDV 40-100 cm/s. 4. Greater than 70% stenosis to near occlusion= ICA PSV > 230 cm/s: ratio > 4.0: ICA EDV > 100 cm/s. 5. Near occlusion= ICA PSV velocities may be low or undetectable: variable ratio and ICA EDV. 6. Total occlusion=unable to detect flow.
[2022-03-11] MEDS: FLUTICASONE 50MCG/SPRAY NASAL 16GM EA NOSTRIL SCH (20:28)
--- NOTE | 2022-03-11 21:15 | HP ---
HISTORY AND PHYSICAL CHIEF COMPLAINT: Chest pain and right-sided weakness. HISTORY OF PRESENT ILLNESS: This 46-year-old gentleman with a past medical history of hypertension and diabetes mellitus, being followed by Dr. Carr in the outpatient setting. He complains of chest pain for the last 1 week, which was felt in the retrosternal area. The patient also noted weakness of the right side for the last 3 days. The patient came to [facility], found to have an acute ST-segment elevation myocardial infarction with acute QRS complexes and ST elevation in the anterior leads as well as subcortical hypodensity of the posterior left parietal lobe indicating acute stroke also. The patient is not a candidate for tPA. Cardiology is following the patient closely. Troponins elevated. A CT angiogram of the neck showed left carotid occlusion with some reconstitution. The patient was admitted for further evaluation and treatment. There is no history of any fever, rigors, or chills at this time. PAST MEDICAL HISTORY: Hypertension and diabetes mellitus type 2, rest of the history and rest of the chart is reviewed. HOME MEDICATIONS: Reviewed and include Synthroid, dose and rest of medications reviewed. ALLERGIES: Reviewed and include amoxicillin. FAMILY HISTORY: No history of heart diseases or strokes in the family. SOCIAL HISTORY: History of smoking, continued and ongoing. REVIEW OF SYSTEMS: A 14-point review of systems is negative except as mentioned earlier. PHYSICAL EXAMINATION: VITAL SIGNS: Pulse is 87, blood pressure 104/76, respirations 18. HEENT: Conjunctivae normal. NECK: No JVD. CARDIOVASCULAR: S1, S2. RESPIRATION: Breath sounds diminished at the bases. ABDOMEN: Soft, nontender. LEGS: No edema. NERVOUS SYSTEM: Significant weakness of the right side present. SKIN: No ulcer, rash, or bleeding. JOINTS: No active deforming arthropathy. LYMPHATICS: No lymph node palpable in neck, axillae, or groin. LABORATORY DATA: Reviewed. X-rays reviewed personally. CT scan reviewed personally. ASSESSMENT: 1. Acute right-sided stroke, caused by left hemispheric lesion. 2. Acute ST-segment elevation myocardial infarction with elevated troponin and QRS complexes in the anterior leads. 3. Hypertension. 4. Diabetes mellitus, type 2. 5. Multiple medical issues. RECOMMENDATIONS: In this 46-year-old gentleman, who presented with multiple complex medical issues, we will monitor the patient closely. Low-dose heparin has been recommended by the Neurology. The stroke code has been called and Cardiology is following the patient closely. We will also obtain a 2D echo with Doppler to rule out the possibility of any intracardiac thrombus. Otherwise, overall prognosis is extremely guarded. Vascular Surgery also will be consulted, and the patient is obviously not a candidate for any tPA at this point. Repeat cultures, and repeat labs will be ordered. Prognosis is guarded because of multiple complex medical issues. Further recommendations to follow. See orders for further details. MMODL / IJN: [id number] /
[2022-03-11] MEDS ORDERED: HEPARIN SODIUM 1,000 UN/ML (10ML VL) IV PRN (22:53)
[2022-03-12] MEDS: NITROGLYCERIN SL TABS 0.4 MG TAB SUBLINGUAL PRN (00:11)
[2022-03-12 03:59] LABS: Amphetamine Screen,Urine Not Detected (NotDetected); Barbiturate Screen,Urine Not Detected (NotDetected); Benzodiazepines Screen,Urine Not Detected (NotDetected); Cocaine Screen,Urine Not Detected (NotDetected); Methadone Screen, Urine Not Detected (NotDetected); Opiate Screen,Urine Not Detected (NotDetected); Oxycodone Screen, Urine Not Detected (NotDetected); Phencyclidine Screen,Urine Not Detected (NotDetected); Tricyclic Antidepressant,Urine Not Detected (NotDetected); Urn Cannabinoid Scrn Not Detected (NotDetected)
[2022-03-12 06:42] LABS: Basophils # (A) 0.1 k/uL (0-0.2); Basophils % (A) 1 %; Eosinophils # (A) 0.1 k/uL (0-0.7); Eosinophils % (A) 1 %; HCT 34.8 % (39.0-53.0); HGB 11.8 gm/dL (13.0-17.5); Lymphocytes # (A) 2.2 k/uL (1.0-4.8); Lymphocytes % (A) 29 %; MCH 29.9 pg (25.0-35.0); MCHC 33.8 g/dL (31.0-37.0); MCV 88.4 fL (80.0-100.0); Mean Platelet Volume 7.6; Monocytes # (A) 0.6 k/uL (0-1.0); Monocytes % (A) 8 %; Neutrophils # (A) 4.6 k/uL (1.3-7.7); Neutrophils % (A) 60 %; Platelet Count 324 k/uL (150-450); RBC 3.94 m/uL (4.30-5.90); RDW 13.6 % (11.5-15.5); WBC 7.6 k/uL (3.8-10.6)
[2022-03-12 07:00] LABS: ALT 42 U/L (4-49); AST 89 U/L (17-59); African American GFR (CKD) >90 (>60 ml/min/1.73 sqM); Albumin 3.5 g/dL (3.5-5.0); Alkaline Phosphatase 103 U/L (38-126); Anion Gap 4 mmol/L; Blood Urea Nitrogen 13 mg/dL (9-20); Calcium 8.5 mg/dL (8.4-10.2); Carbon Dioxide 24 mmol/L (22-30); Chloride 109 mmol/L (98-107); Glucose 100 mg/dL (74-99); Non-African American GFR(CKD) >90 (>60 ml/min/1.73 sqM); Potassium 3.8 mmol/L (3.5-5.1); Sodium 137 mmol/L (137-145); Total Bilirubin 0.7 mg/dL (0.2-1.3); Total Protein 6.7 g/dL (6.3-8.2)
[2022-03-12] MEDS: LEVOTHYROXINE 100 MCG TAB PO SCH (07:10)
[2022-03-12] MEDS: PANTOPRAZOLE 40 MG TABLET PO SCH (07:11)
[2022-03-12] MEDS: LORATADINE 10 MG TAB PO SCH (09:11)
[2022-03-12] MEDS: CLOPIDOGREL 75 MG TAB PO SCH (09:11)
[2022-03-12] MEDS: ASPIRIN 325 MG TAB PO SCH (09:11)
[2022-03-12] MEDS: ATORVASTATIN 80 MG TAB PO SCH (09:11)
[2022-03-12] MEDS: METOPROLOL TARTRATE 25 MG TAB PO SCH (09:12)
[2022-03-12] MEDS: SODIUM CHLORIDE 0.9% 1,000 ML IV SCH (09:13)
[2022-03-12] MEDS: NICOTINE 14MG/24HR PATCH TRANSDERM SCH (09:13)
--- NOTE | 2022-03-12 10:01 | P.PN ---
Subjective HISTORY OF PRESENTING ILLNESS This is a pleasant 46-year-old with past medical history significant for hypertension, diabetes mellitus type 2, tobacco abuse, family history of CAD. He follows in the office with Dr Olson. He states he has been having off-and-on chest pain over last 1 week. The chest pain started and then unfortunately he also had right upper and right lower extremity weakness. He has never had symptoms similar to this in the past. He stayed at home and was unable to walk and fell once or twice. He denies any back or head trauma. He does have a strong family history of CAD. EKG shows sinus rhythm with Q waves V1-V3 and I and aVL with ST elevations. He was given Nitro x 1 and states his chest pain has resolved. He additionally notes he has been somewhat lightheaded as well as off-balance. 03/12 Patient seen and examined. Patient states he is having mild improvement in his right lower extremity movement as well as right hand. He denies any shortness of breath. He did have 1 episode of chest pain overnight for approximately 15- 20 minutes and this improved with nitro. No pain since. He was started on meto prolol and blood pressures stable. CT had shown left carotid 100% occlusion and carotid ultrasound verifies 100% occlusion. No recommendations for neuro intervention. CT brain showing no bleed. He has been maintained on heparin drip PHYSICAL EXAMINATION Vital signs reviewed. CONSTITUTIONAL: No apparent distress, +right hemiparesis HEENT: Head is normocephalic. Pupils are equal, round. Sclerae anicteric. Mucous membranes of the mouth are moist. No JVD. No carotid bruit. CHEST EXAMINATION: Lungs are clear to auscultation. No chest wall tenderness is noted on palpation or with deep breathing. HEART EXAMINATION: Regular rate and rhythm. S1, S2 heard. No murmurs, gallops or rub. ABDOMEN: Soft, nontender. Positive bowel sounds. EXTREMITIES: 2+ peripheral pulses, no lower extremity edema and no calf tenderness. NEUROLOGIC EXAMINATION: Patient is awake, alert and oriented x3. ASSESSMENT 1. Late presenting anterolateral STEMI, appears may have completed infarct with Q waves on EKG however still having intermittent chest pain 2. Acute right upper and lower extremity weakness most consistent with acute stroke. 3. Tobacco abuse 4. Strong family history CAD 5. Left carotid 100% stenosis PLAN Patient was placed on heparin, aspirin and Plavix and currently relatively stable. Did have 1 episode of chest pain overnight which may be a good sign that there may be some viable tissue. Eventually patient will need heart catheterization. Some increased risk of hemorrhagic conversion with increased heparin demand during PCI. Likely heart catheterization and next 24-48 hours pending neurology recommendations. Increase metoprolol given some chest pain for antianginal purposes. Objective - Vital Signs Vital signs: Vital Signs Temp 98.4 F 03/12/22 04:00 Pulse 87 03/12/22 07:00 Resp 14 03/12/22 07:00 BP 84/51 03/12/22 07:00 Pulse Ox 98 03/12/22 07:00 FiO2 Intake & Output 03/11/22 03/12/22 03/12/22 18:59 06:59 18:59 Intake Total 400 1271.476 300 Output Total 300 580 475 Balance 100 691.476 -175 Weight 65.2 kg 67.5 kg Intake: IV 400 1200 300 Sodium Chloride 0.9% 1, 400 1200 300 000 ml @ 100 mls/hr IV . Q10H [facility] Rx#:[id number] Intake, IV Titration 71.476 Amount Heparin Sod,Pork in 0.45% 71.476 NaCl 25,000 unit In 0.45 % NaCl 1 250ml.bag @ 12 UNITS/KG/HR 8.001 mls/hr IV .Q24H [facility] Rx#: [id number] Output: Urine 300 580 475 Other: Voiding Method Urinal Urinal Urinal # Voids 1 1 1 - Labs CBC & Chem 7: 03/12/22 06:16 03/12/22 06:16 Labs: Abnormal Lab Results - Last 24 Hours (Table) 03/11/22 03/11/22 03/11/22 Range/Units 11:50 11:50 11:50 WBC 13.4 H (3.8-10.6) k/uL RBC (4.30-5.90) m/uL Hgb (13.0-17.5) gm/dL Hct (39.0-53.0) % Neutrophils # 9.0 H (1.3-7.7) k/uL Monocytes # 1.2 H (0-1.0) k/uL APTT (22.0-30.0) sec Potassium 5.3 H (3.5-5.1) mmol/L Chloride 111 H (98-107) mmol/L Carbon Dioxide 20 L (22-30) mmol/L Glucose 150 H (74-99) mg/dL POC Glucose (mg/dL) (70-110) mg/dL AST 170 H (17-59) U/L ALT 59 H (4-49) U/L Troponin I 53.000 H* (0.000-0.034) ng/mL Total Protein 8.7 H (6.3-8.2) g/dL 03/11/22 03/11/22 03/11/22 Range/Units 14:46 15:03 19:04 WBC (3.8-10.6) k/uL RBC (4.30-5.90) m/uL Hgb (13.0-17.5) gm/dL Hct (39.0-53.0) % Neutrophils # (1.3-7.7) k/uL Monocytes # (0-1.0) k/uL APTT (22.0-30.0) sec Potassium (3.5-5.1) mmol/L Chloride (98-107) mmol/L Carbon Dioxide (22-30) mmol/L Glucose (74-99) mg/dL POC Glucose (mg/dL) 131 H (70-110) mg/dL AST (17-59) U/L ALT (4-49) U/L Troponin I 57.100 H* 43.400 H* (0.000-0.034) ng/mL Total Protein (6.3-8.2) g/dL 03/11/22 03/12/22 03/12/22 Range/Units 20:18 06:16 06:16 WBC (3.8-10.6) k/uL RBC 3.94 L (4.30-5.90) m/uL Hgb 11.8 L (13.0-17.5) gm/dL Hct 34.8 L (39.0-53.0) % Neutrophils # (1.3-7.7) k/uL Monocytes # (0-1.0) k/uL APTT 32.3 H (22.0-30.0) sec Potassium (3.5-5.1) mmol/L Chloride 109 H (98-107) mmol/L Carbon Dioxide (22-30) mmol/L Glucose 100 H (74-99) mg/dL POC Glucose (mg/dL) (70-110) mg/dL AST 89 H (17-59) U/L ALT (4-49) U/L Troponin I (0.000-0.034) ng/mL Total Protein (6.3-8.2) g/dL 03/12/22 Range/Units 06:16 WBC (3.8-10.6) k/uL RBC (4.30-5.90) m/uL Hgb (13.0-17.5) gm/dL Hct (39.0-53.0) % Neutrophils # (1.3-7.7) k/uL Monocytes # (0-1.0) k/uL APTT 49.6 H (22.0-30.0) sec Potassium (3.5-5.1) mmol/L Chloride (98-107) mmol/L Carbon Dioxide (22-30) mmol/L Glucose (74-99) mg/dL POC Glucose (mg/dL) (70-110) mg/dL AST (17-59) U/L ALT (4-49) U/L Troponin I (0.000-0.034) ng/mL Total Protein (6.3-8.2) g/dL
[2022-03-12] MEDS ORDERED: METOPROLOL TARTRATE 50 MG TAB PO SCH (10:15)
[2022-03-12] MEDS ORDERED: METOPROLOL TARTRATE 25 MG TAB PO ONE (10:15)
--- NOTE | 2022-03-12 10:18 | P.PN ---
Subjective Progress Note Date: 03/12/22 Principal diagnosis: ICA occlusion Bruno was seen and examined today as a follow-up status post right hemiparesis suspected acute ischemic stroke. Patient has MRI ordered this morning. He is able to move the right lower extremity more today is able to lift it off slightly off the bed and again flex at the knee. He is able to grasp with his right hand and make a fist however he is otherwise flaccid. Speech is fluent, patient has facial symmetry and is alert and oriented 3. He is currently on a heparin drip, cardiology is following closely. Patient had a carotid duplex that again demonstrated left ICA occlusion with right ICA patency. Objective - Vital Signs Vital signs: Vital Signs Temp 98.4 F 03/12/22 04:00 Pulse 87 03/12/22 05:00 Resp 17 03/12/22 05:00 BP 103/72 03/12/22 05:00 Pulse Ox 96 03/12/22 05:00 FiO2 Intake & Output 03/11/22 03/12/22 03/12/22 18:59 06:59 18:59 Intake Total 400 1171.476 Output Total 300 380 Balance 100 791.476 Weight 65.2 kg 67.5 kg Intake: IV 400 1100 Sodium Chloride 0.9% 1, 400 1100 000 ml @ 100 mls/hr IV . Q10H [facility] Rx#:[id number] Intake, IV Titration 71.476 Amount Heparin Sod,Pork in 0.45% 71.476 NaCl 25,000 unit In 0.45 % NaCl 1 250ml.bag @ 12 UNITS/KG/HR 8.001 mls/hr IV .Q24H [facility] Rx#: [id number] Output: Urine 300 380 Other: Voiding Method Urinal Urinal # Voids 1 1 - Exam General appearance: The patient is alert, oriented, appears in no acute distress. HET: Head is normocephalic and atraumatic. Pupils are equal and reactive. Neck: Supple without lymphadenopathy. Trachea midline. No audible carotid bruit. Heart: Regular. Lungs: Equal expansion, normal respiratory effort. Abdomen: Soft, nontender, nondistended. Extremities: Normal skin color and turgor. No cyanosis, rash, ulceration, clubbing, or edema. Neurological: Right upper extremity flaccid, patient is able to make fist. Right lower extremity weakness is able to flex ankle and knee, raise slightly off bed. Patient has facial symmetry, tongue protrudes midline he is able to follow commands in speech is fluent. He is alert and oriented 3. - Labs CBC & Chem 7: 03/12/22 06:16 03/12/22 06:16 Labs: Abnormal Lab Results - Last 24 Hours (Table) 03/11/22 03/11/22 03/11/22 Range/Units 11:50 11:50 11:50 WBC 13.4 H (3.8-10.6) k/uL RBC (4.30-5.90) m/uL Hgb (13.0-17.5) gm/dL Hct (39.0-53.0) % Neutrophils # 9.0 H (1.3-7.7) k/uL Monocytes # 1.2 H (0-1.0) k/uL APTT (22.0-30.0) sec Potassium 5.3 H (3.5-5.1) mmol/L Chloride 111 H (98-107) mmol/L Carbon Dioxide 20 L (22-30) mmol/L Glucose 150 H (74-99) mg/dL POC Glucose (mg/dL) (70-110) mg/dL AST 170 H (17-59) U/L ALT 59 H (4-49) U/L Troponin I 53.000 H* (0.000-0.034) ng/mL Total Protein 8.7 H (6.3-8.2) g/dL 03/11/22 03/11/22 03/11/22 Range/Units 14:46 15:03 19:04 WBC (3.8-10.6) k/uL RBC (4.30-5.90) m/uL Hgb (13.0-17.5) gm/dL Hct (39.0-53.0) % Neutrophils # (1.3-7.7) k/uL Monocytes # (0-1.0) k/uL APTT (22.0-30.0) sec Potassium (3.5-5.1) mmol/L Chloride (98-107) mmol/L Carbon Dioxide (22-30) mmol/L Glucose (74-99) mg/dL POC Glucose (mg/dL) 131 H (70-110) mg/dL AST (17-59) U/L ALT (4-49) U/L Troponin I 57.100 H* 43.400 H* (0.000-0.034) ng/mL Total Protein (6.3-8.2) g/dL 03/11/22 03/12/22 03/12/22 Range/Units 20:18 06:16 06:16 WBC (3.8-10.6) k/uL RBC 3.94 L (4.30-5.90) m/uL Hgb 11.8 L (13.0-17.5) gm/dL Hct 34.8 L (39.0-53.0) % Neutrophils # (1.3-7.7) k/uL Monocytes # (0-1.0) k/uL APTT 32.3 H (22.0-30.0) sec Potassium (3.5-5.1) mmol/L Chloride 109 H (98-107) mmol/L Carbon Dioxide (22-30) mmol/L Glucose 100 H (74-99) mg/dL POC Glucose (mg/dL) (70-110) mg/dL AST 89 H (17-59) U/L ALT (4-49) U/L Troponin I (0.000-0.034) ng/mL Total Protein (6.3-8.2) g/dL 03/12/22 Range/Units 06:16 WBC (3.8-10.6) k/uL RBC (4.30-5.90) m/uL Hgb (13.0-17.5) gm/dL Hct (39.0-53.0) % Neutrophils # (1.3-7.7) k/uL Monocytes # (0-1.0) k/uL APTT 49.6 H (22.0-30.0) sec Potassium (3.5-5.1) mmol/L Chloride (98-107) mmol/L Carbon Dioxide (22-30) mmol/L Glucose (74-99) mg/dL POC Glucose (mg/dL) (70-110) mg/dL AST (17-59) U/L ALT (4-49) U/L Troponin I (0.000-0.034) ng/mL Total Protein (6.3-8.2) g/dL Assessment and Plan Assessment: 1. Right-sided weakness, hemiparesis. Acute/subaute stroke 2. Left ICA occlusion 3. STEMI 4. Tobacco abuse Plan: 1. Agree with aspirin, Plavix and high-dose statin 2. Tobacco cessation 3. Continue with recommendations from neurology 4. Continue with recommendations from cardiology 5. PT/OT/ST 6. There is no indication for any vascular surgical intervention for left carotid occlusion. Discuss with patient he should follow with vascular surgery for outpatient surveillance of right ICA. Thank you for this consultation, we will sign off at this time. The impression and plan of care has been dictated as directed. I performed a history and examination of this patient, discussed the same with the dictator. I agree with the dictator's note ,documented as a scribe. Any additional findings or plans will be noted.
--- NOTE | 2022-03-12 10:27 | CA ---
Transthoracic Echo Report Name: Bruno Senior Age: 46 Gender: M : 1975 Exam Date: 03/11/2022 12:18 Exam Location: [facility] Ht (in): 66 Wt (lb): 147 Ordering Physician: Ramses Boone DO ([email or web address]) Attending/Referring Phys: Insurance Policy Clerk My Piper, NATALIA Procedure CPT: Indications: re: STEMI Cardiac Hx: Technical Quality: Fair Contrast 1: [place] Total Dose (mL): 4 Contrast 2: Total Dose (mL): MEASUREMENTS (Male / Female) Normal Values 2D ECHO LV Diastolic Diameter PLAX 3.7 cm 4.2 - 5.9 / 3.9 - 5.3 cm LV Systolic Diameter PLAX 3.0 cm IVS Diastolic Thickness 0.9 cm 0.6 - 1.0 / 0.6 - 0.9 cm LVPW Diastolic Thickness 0.9 cm 0.6 - 1.0 / 0.6 - 0.9 cm LV Relative Wall Thickness 0.5 LA Systolic Diameter LX 4.2 cm 3.0 - 4.0 / 2.7 - 3.8 cm DOPPLER AV Peak Velocity 116.6 cm/s AV Peak Gradient 5.4 mmHg LVOT Peak Velocity 92.4 cm/s LVOT Peak Gradient 3.4 mmHg MV Peak Velocity 52.7 cm/s MV Peak Gradient 1.1 mmHg Mitral E Point Velocity 52.2 cm/s Mitral A Point Velocity 76.1 cm/s Mitral E to A Ratio 0.7 LV E' Lateral Velocity 4.6 cm/s Mitral E to LV E' Lateral Ratio 11.3 LV E' Septal Velocity 4.2 cm/s Mitral E to LV E' Septal Ratio 12.5 TR Peak Velocity 187.0 cm/s TR Peak Gradient 14.0 mmHg FINDINGS Left Ventricle Left ventricular wall thickness normal. [place] hypokinetic, anterior apical, inferior apical, apical septal and apical lateral wall hypokinesis. Left ventricular ejection fraction is estimated at 35-40 %. Used contrast to r/o apical thrombus. Right Ventricle Normal right ventricular size and function. Right Atrium Normal right atrial size. Left Atrium Normal left atrial size. Mitral Valve Structurally normal mitral valve. Mild mitral regurgitation. Aortic Valve No aortic valve stenosis or regurgitation. Tricuspid Valve Structurally normal tricuspid valve. Mild tricuspid regurgitation. Pulmonic Valve Trace pulmonic regurgitation. Pericardium No pericardial effusion. Aorta Normal size aortic root and proximal ascending aorta. CONCLUSIONS Impaired LV function. The EF is 35-40%. Mid ventricle and apical akinesia Previewed by: Dr. Orlando Darnell MD (Electronically Signed) Final Date: 12 March 2022 10:27
[2022-03-12] MEDS: lisinopriL 10 MG TAB PO SCH (10:33)
--- NOTE | 2022-03-12 12:07 | P.PN ---
Subjective Progress Note Date: 03/12/22 The patient is seen at bedside and feels about the same as yesterday. Per nurse he is more cooperative compared to yesterday. Per nurse, cardiology is considering taking him to cardiac cath but unknown exac tly when. Objective - Vital Signs Vital signs: Vital Signs Temp 98.0 F 03/12/22 08:00 Pulse 94 03/12/22 10:00 Resp 11 L 03/12/22 10:00 BP 109/78 03/12/22 10:00 Pulse Ox 99 03/12/22 10:00 FiO2 Intake & Output 03/11/22 03/12/22 03/12/22 18:59 06:59 18:59 Intake Total 400 1271.476 300 Output Total 300 580 475 Balance 100 691.476 -175 Weight 65.2 kg 67.5 kg Intake: IV 400 1200 300 Sodium Chloride 0.9% 1, 400 1200 300 000 ml @ 100 mls/hr IV . Q10H [facility] Rx#:[id number] Intake, IV Titration 71.476 Amount Heparin Sod,Pork in 0.45% 71.476 NaCl 25,000 unit In 0.45 % NaCl 1 250ml.bag @ 12 UNITS/KG/HR 8.001 mls/hr IV .Q24H [facility] Rx#: [id number] Output: Urine 300 580 475 Other: Voiding Method Urinal Urinal Urinal # Voids 1 1 1 - Exam GENERAL: The patient is lying in bed and is not in acute distress. NEUROLOGICAL: Higher mental function: The patient is awake, alert, oriented to self, place and time. Patient is following commands. No aphasia and no neglect. Cranial nerves: The pupils are round, equal and reactive to light and accommodation. Visual banks are full to confrontation throughout. 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 Facial sensation is normal to touch throughout. The facial strength is normal throughout. Hearing is normal bilaterally to hand rub. Tongue is midline and moved [id number] without any difficulty. No dysarthria is noted. Shoulder severely weak over the right upper while normal over the left. Motor: The strength is right hand strength is 4+ otherwise rest of right upper is 0. Right lower is right hip flexion/exntesion is 2-3, right knee is 2-3 (more 2). Right ankle is 0. Left is 5/5. Decrease tone over the right lower. Normal bulk. Cerebellum: Normal on the left but unable to assess right because of weakness. Sensation: Sensation is normal to touch throughout. Reflexes (right/left): 3+ over the right while left is 2+. Plantars are upgoing bilaterally. Some of the workup during his hospital visit consisted of: AST of 170 ALT is 59 potassium 5.3. Initial troponin is 53. Most current is 43 Urine tox screen is not detected. EKG is reported as sinus tachycardia. Anterolateral myocardial infarction probably recent. Acute NM CT of the head is reported as subcortical hypodensity posterior left parietal lobe with cortical/subcortical hypodensity medial left frontal parietal junction, left parafalcine region and adjacent to the lateral/superior left fron katherine lobe. Correlate for acute to subacute infarct. No midline shift. No herniation or acute intracranial hemorrhage. I personally reviewed that CT now agree with the report and I feel changes seem more subacute. CT angiography of the head is reported as proximal left ICA occlusion, 1 cm above its origin. No urinary or dissection seen at the level of the aortic arch. No other hemodynamically significant carotid or vertebral artery stenosis in the neck. CT angiography of the head is reported as left ICA occlusion but with reconstitution at the ophthalmic segment and distally likely from the retrograde flow from the anterior and posterior communicating artery. The remainder of the anterior and posterior circulation opacity normal. Carotid duplex: Obstruction of the left internal carotid artery. Intimal thickening present bilaterally. 2-D echo was reported as impaired left ventricular function. Ejection fraction of 35-40%. Mid ventricular and apical akinesia. - Labs CBC & Chem 7: 03/12/22 06:16 03/12/22 06:16 Labs: Abnormal Lab Results - Last 24 Hours (Table) 03/11/22 03/11/22 03/11/22 Range/Units 11:50 11:50 11:50 WBC 13.4 H (3.8-10.6) k/uL RBC (4.30-5.90) m/uL Hgb (13.0-17.5) gm/dL Hct (39.0-53.0) % Neutrophils # 9.0 H (1.3-7.7) k/uL Monocytes # 1.2 H (0-1.0) k/uL APTT (22.0-30.0) sec Potassium 5.3 H (3.5-5.1) mmol/L Chloride 111 H (98-107) mmol/L Carbon Dioxide 20 L (22-30) mmol/L Glucose 150 H (74-99) mg/dL POC Glucose (mg/dL) (70-110) mg/dL AST 170 H (17-59) U/L ALT 59 H (4-49) U/L Troponin I 53.000 H* (0.000-0.034) ng/mL Total Protein 8.7 H (6.3-8.2) g/dL 03/11/22 03/11/22 03/11/22 Range/Units 14:46 15:03 19:04 WBC (3.8-10.6) k/uL RBC (4.30-5.90) m/uL Hgb (13.0-17.5) gm/dL Hct (39.0-53.0) % Neutrophils # (1.3-7.7) k/uL Monocytes # (0-1.0) k/uL APTT (22.0-30.0) sec Potassium (3.5-5.1) mmol/L Chloride (98-107) mmol/L Carbon Dioxide (22-30) mmol/L Glucose (74-99) mg/dL POC Glucose (mg/dL) 131 H (70-110) mg/dL AST (17-59) U/L ALT (4-49) U/L Troponin I 57.100 H* 43.400 H* (0.000-0.034) ng/mL Total Protein (6.3-8.2) g/dL 03/11/22 03/12/22 03/12/22 Range/Units 20:18 06:16 06:16 WBC (3.8-10.6) k/uL RBC 3.94 L (4.30-5.90) m/uL Hgb 11.8 L (13.0-17.5) gm/dL Hct 34.8 L (39.0-53.0) % Neutrophils # (1.3-7.7) k/uL Monocytes # (0-1.0) k/uL APTT 32.3 H (22.0-30.0) sec Potassium (3.5-5.1) mmol/L Chloride 109 H (98-107) mmol/L Carbon Dioxide (22-30) mmol/L Glucose 100 H (74-99) mg/dL POC Glucose (mg/dL) (70-110) mg/dL AST 89 H (17-59) U/L ALT (4-49) U/L Troponin I (0.000-0.034) ng/mL Total Protein (6.3-8.2) g/dL 03/12/22 Range/Units 06:16 WBC (3.8-10.6) k/uL RBC (4.30-5.90) m/uL Hgb (13.0-17.5) gm/dL Hct (39.0-53.0) % Neutrophils # (1.3-7.7) k/uL Monocytes # (0-1.0) k/uL APTT 49.6 H (22.0-30.0) sec Potassium (3.5-5.1) mmol/L Chloride (98-107) mmol/L Carbon Dioxide (22-30) mmol/L Glucose (74-99) mg/dL POC Glucose (mg/dL) (70-110) mg/dL AST (17-59) U/L ALT (4-49) U/L Troponin I (0.000-0.034) ng/mL Total Protein (6.3-8.2) g/dL Assessment and Plan Assessment: This is a 46-year-old gentleman with weakness of the right side initially started about 8 days ago that is progressively worsening and then noticed right upper and had a fall about 3 days ago. Also had chest pain for the past 8 days. Acute to subacute ischemic stroke (feel more subacute). Rght sided hemiparesis and started about 8 days (right upper is worse than lower). Etiology seems embolic (artery to artery vs cardiac). Left ICA occlusion STEMI Impaired left ventricular function with ejection fraction of 35-40% Diabetes mellitus Hypertension Tobacco use Ramón family history of coronary artery disease. Plan: Continue aspirin 325mg daily as well as Plavix 75 mg daily both new for second mick stroke prophylaxis. Also on Lipitor 80mg daily. Pending MRI Brain. On heparin drip. Avoid boluses and keep the PTT between 40 and 60 from neurological perspective. Pending Lipid panel. Consulted vascular surgery team for carotid stenosis. No intervention for Left ICA since is completely occluded and they recommended outpatient surveillance of right ICA. PT OT and [facility] are consulted Cardiology is on board and considering cardiac cath. Continue neuro checks On cardiac Cardiology is on board Patient is counseled on tobacco cessation. For DVT prophylaxis patient is on heparin drip. Condition is very guarded The plan is discussed with patient and his nurse. Time with Patient: Less than 30
--- NOTE | 2022-03-12 12:17 | P.PN ---
Subjective Progress Note Date: 03/12/22 Principal diagnosis: Subacute CVA with right-sided weakness Reevaluated today on 03/12/22, patient remains in the ICU, he feels fine, continues to have weakness on the right side, his right upper extremity seems to be significantly much weaker than the right lower extremity. Patient was seen by cardiology and he is being considered for cardiac catheterization, he was also seen by neurology and the plan is to continue heparin for now. No major change in the last 24 hours, patient is hemodynamically stable. Labs done today are basically unremarkable including his CBC and his basic metabolic profile. PTT is therapeutic at 49.6. Drug screen on admission has been negative. His troponin yesterday was elevated as high as 57. Objective - Vital Signs Vital signs: Vital Signs Temp 98.0 F 03/12/22 08:00 Pulse 94 03/12/22 10:00 Resp 11 L 03/12/22 10:00 BP 109/78 03/12/22 10:00 Pulse Ox 99 03/12/22 10:00 FiO2 Intake & Output 03/11/22 03/12/22 03/12/22 18:59 06:59 18:59 Intake Total 400 1271.476 300 Output Total 300 580 475 Balance 100 691.476 -175 Weight 65.2 kg 67.5 kg Intake: IV 400 1200 300 Sodium Chloride 0.9% 1, 400 1200 300 000 ml @ 100 mls/hr IV . Q10H [facility] Rx#:[id number] Intake, IV Titration 71.476 Amount Heparin Sod,Pork in 0.45% 71.476 NaCl 25,000 unit In 0.45 % NaCl 1 250ml.bag @ 12 UNITS/KG/HR 8.001 mls/hr IV .Q24H [facility] Rx#: [id number] Output: Urine 300 580 475 Other: Voiding Method Urinal Urinal Urinal # Voids 1 1 1 - Exam Physical Exam: Revealed 46-year-old white male in no distress on room air. Head: Atraumatic, normocephalic. HEENT:[Neck is supple.] [No neck masses.] [No thyromegaly.] [No JVD.] Chest: [Clear throughout, no crackles, no rhonchi, no wheezes.] Cardiac Exam: [Normal S1 and S2, no S3 gallop, no murmur.] Abdomen: [Soft, nontender, no megaly, no rebound, no guarding, normal bowel sounds.] Extremities: [No clubbing, no edema, no cyanosis.] Neurological Exam: alert oriented to place and time, follows simple instructions, no evidence of aphasia or neglect. Dense hemiplegia noted in the right upper extremity and in the right lower extremity could barely elevate right lower extremity above the gravity. Left side is basically unremarkable. Psychiatric: Normal mood, affect and normal mental status examination. Skin: No rashes. - Labs CBC & Chem 7: 03/12/22 06:16 03/12/22 06:16 Labs: Abnormal Lab Results - Last 24 Hours (Table) 03/11/22 03/11/22 03/11/22 Range/Units 11:50 11:50 14:46 RBC (4.30-5.90) m/uL Hgb (13.0-17.5) gm/dL Hct (39.0-53.0) % APTT (22.0-30.0) sec Potassium 5.3 H (3.5-5.1) mmol/L Chloride 111 H (98-107) mmol/L Carbon Dioxide 20 L (22-30) mmol/L Glucose 150 H (74-99) mg/dL POC Glucose (mg/dL) 131 H (70-110) mg/dL AST 170 H (17-59) U/L ALT 59 H (4-49) U/L Troponin I 53.000 H* (0.000-0.034) ng/mL Total Protein 8.7 H (6.3-8.2) g/dL 03/11/22 03/11/22 03/11/22 Range/Units 15:03 19:04 20:18 RBC (4.30-5.90) m/uL Hgb (13.0-17.5) gm/dL Hct (39.0-53.0) % APTT 32.3 H (22.0-30.0) sec Potassium (3.5-5.1) mmol/L Chloride (98-107) mmol/L Carbon Dioxide (22-30) mmol/L Glucose (74-99) mg/dL POC Glucose (mg/dL) (70-110) mg/dL AST (17-59) U/L ALT (4-49) U/L Troponin I 57.100 H* 43.400 H* (0.000-0.034) ng/mL Total Protein (6.3-8.2) g/dL 03/12/22 03/12/22 03/12/22 Range/Units 06:16 06:16 06:16 RBC 3.94 L (4.30-5.90) m/uL Hgb 11.8 L (13.0-17.5) gm/dL Hct 34.8 L (39.0-53.0) % APTT 49.6 H (22.0-30.0) sec Potassium (3.5-5.1) mmol/L Chloride 109 H (98-107) mmol/L Carbon Dioxide (22-30) mmol/L Glucose 100 H (74-99) mg/dL POC Glucose (mg/dL) (70-110) mg/dL AST 89 H (17-59) U/L ALT (4-49) U/L Troponin I (0.000-0.034) ng/mL Total Protein (6.3-8.2) g/dL Assessment and Plan Assessment: impression: Subacute ischemic stroke, presenting with right sided weakness Left internal carotid artery occlusion recent anterolateral ST elevation myocardial infarction is strongly suspected. Severe LV dysfunction with ejection fraction of 35%, no mention of apical thrombosis on echocardiogram Severe ischemic cardiomyopathy and LV dysfunction is strongly suspected Tobacco dependence syndrome Benign essential hypertension Type 2 diabetes recommendation: Continue heparin continue aspirin Continue Plavix Continue nitroglycerin GI prophylaxis Being considered for cardiac catheterization by cardiology. Nicotine patches Will follow closely. Time with Patient: Less than 30
--- NOTE | 2022-03-12 14:13 | MR ---
EXAMINATION TYPE: MR brain wo con DATE OF EXAM: 03/12/2022 COMPARISON: CT brain from yesterday HISTORY: Stroke. Acute onset neuro deficit one day earlier. TECHNIQUE: Multiplanar, multisequence imaging of the brain and brainstem is performed without IV cont rast. FINDINGS: Diffusion weighted images demonstrate areas of increased signal on diffusion weighted images with dim inished signal on ADC corresponding having T2 hyperintensity and T1 hypointensity involving the high left posterior frontal and parietal lobes extending almost to the level inferiorly of the syed radi ricco. Findings are consistent with evolving acute infarct. Ventricles and sulci within normal limits in size for patient's age. Scattered foci of T2 hyperintens ity are seen throughout the white matter bilaterally. Approximately 15-20 lesions are seen. Lesions a re nonspecific in appearance and distribution. Midline structures demonstrate normal morphology. The craniocervical junction appears within normal limits. Normal vascular flow voids are present. The visualized sinuses are clear and the globes are i ntact. IMPRESSION: 1. Evolving acute infarct high left frontal and parietal lobes is confirmed. 2. Background mild nonspecific white matter changes is present seen better on MRI versus CT favors pr oduct of chronic small vessel ischemic change.
[2022-03-12 16:21] LABS: Chol/HDL Ratio 3.91 Ratio; LDL Cholesterol,Calculated 79.3 mg/dL (0.0-131.0); VLDL Calculation 15.16 mg/dL (5.00-40.00)
[2022-03-12] MEDS: HEPARIN SOD,PORK IN 0.45% NACL 25,000 UNIT in 0.45% NACL 1 250ML.BAG IV SCH (19:43)
[2022-03-12] MEDS: METOPROLOL TARTRATE 50 MG TAB PO SCH (20:49)
[2022-03-12] MEDS: FLUTICASONE 50MCG/SPRAY NASAL 16GM EA NOSTRIL SCH (20:49)
[2022-03-13] MEDS: NITROGLYCERIN SL TABS 0.4 MG TAB SUBLINGUAL PRN (04:58)
[2022-03-13 06:06] LABS: Glucose,Whole Blood 167 mg/dL (70-110)
--- NOTE | 2022-03-13 06:09 | PN ---
PROGRESS NOTE DATE OF SERVICE: 03/12/2022 SUBJECTIVE: This 46-year-old gentleman was admitted with significant weakness and right- sided stroke as well as left-sided infarct in the parietotemporal area in the MRI scan. The patient has 0 to 2 power. The patient also had a chest pain and features of acute anterior wall myocardial infarction. Cardiology is following the patient closely with plans for cardiac cath. The patient also had some history of noncompliance also. The patient will be closely monitored. PAST MEDICAL HISTORY: Reviewed. REVIEW OF SYSTEMS: A 14-point review of systems is negative except as mentioned earlier. CURRENT MEDICATIONS: Include Plavix, doses and rest of medication noted. PHYSICAL EXAMINATION: VITAL SIGNS: Pulse is 94, blood pressure 119/78, respirations 20. HEENT: Conjunctivae normal. NECK: No JVD. CARDIOVASCULAR: S1, S2. RESPIRATIONS: Breath sounds diminished at the bases. ABDOMEN: Soft, nontender. LEGS: No edema. NERVOUS SYSTEM: Right hemiplegia present. LABORATORY DATA: Reviewed personally by me. ASSESSMENT: 1. Acute stroke involving the left temporalcausing right-sided weakness. 2. Acute ST-segment elevation anterior wall myocardial infarction with elevated troponin and QRS complex and ST elevation anteriorly. 3. Hypertension. 4. No evidence of intraventricular thrombus, status post 2D echo. 5. Diabetes mellitus, type 2. 6. Left carotid occlusion. 7. Multiple medical issues. RECOMMENDATIONS AND DISCUSSION: Recommend to continue current medications and symptomatic treatment. Closely follow with antiplatelet agents. Closely follow with Cardiology and Neurology. Vascular is also following the patient closely. We will continue to monitor. Overall prognosis extremely guarded because of above-mentioned multiple medical issues and further recommendations to follow. See orders for further details. The patient is on low dose IV heparin also. MMODL / IJN: [id number] / MTDD
[2022-03-13] MEDS: PANTOPRAZOLE 40 MG TABLET PO SCH (06:52)
[2022-03-13] MEDS: LEVOTHYROXINE 100 MCG TAB PO SCH (06:52)
[2022-03-13] MEDS: ASPIRIN 325 MG TAB PO SCH (07:56)
[2022-03-13] MEDS: METOPROLOL TARTRATE 50 MG TAB PO SCH ×2 (07:56→21:14)
[2022-03-13] MEDS: LORATADINE 10 MG TAB PO SCH (07:56)
[2022-03-13] MEDS: lisinopriL 10 MG TAB PO SCH (07:56)
[2022-03-13] MEDS: ATORVASTATIN 80 MG TAB PO SCH (07:56)
[2022-03-13] MEDS: CLOPIDOGREL 75 MG TAB PO SCH (07:57)
[2022-03-13] MEDS: NICOTINE 14MG/24HR PATCH TRANSDERM SCH (07:57)
[2022-03-13 08:45] LABS: Basophils % (A) 1 %; Eosinophils # (A) 0.1 k/uL (0-0.7); Eosinophils % (A) 1 %; HGB 11.3 gm/dL (13.0-17.5); Lymphocytes % (A) 28 %; MCH 29.5 pg (25.0-35.0); MCHC 33.2 g/dL (31.0-37.0); Mean Platelet Volume 8.2; Monocytes # (A) 0.4 k/uL (0-1.0); Monocytes % (A) 6 %; Neutrophils # (A) 4.4 k/uL (1.3-7.7); Neutrophils % (A) 62 %; Platelet Count 308 k/uL (150-450); RBC 3.82 m/uL (4.30-5.90); RDW 13.4 % (11.5-15.5); WBC 7.1 k/uL (3.8-10.6)
[2022-03-13 08:56] LABS: ALT 41 U/L (4-49); AST 60 U/L (17-59); African American GFR (CKD) >90 (>60 ml/min/1.73 sqM); Albumin 3.5 g/dL (3.5-5.0); Alkaline Phosphatase 111 U/L (38-126); Anion Gap 4 mmol/L; Blood Urea Nitrogen 13 mg/dL (9-20); Calcium 8.4 mg/dL (8.4-10.2); Carbon Dioxide 26 mmol/L (22-30); Chloride 108 mmol/L (98-107); Glucose 202 mg/dL (74-99); Non-African American GFR(CKD) >90 (>60 ml/min/1.73 sqM); Potassium 3.7 mmol/L (3.5-5.1); Sodium 138 mmol/L (137-145); Total Bilirubin 0.6 mg/dL (0.2-1.3); Total Protein 6.6 g/dL (6.3-8.2)
[2022-03-13 10:43] LABS: Appearance,Urine Clear (Clear); Bilirubin,Urine Negative (Negative); Blood,Urine Negative (Negative); Color,Urine Light Yellow; Glucose,Urine (UA) 2+ (Negative); Ketones,Urine Negative (Negative); Leukocyte Esterase,Urine Negative (Negative); Nitrite,Urine Negative (Negative); PH, Urine 6.5 (5.0-8.0); Protein,Urine Negative (Negative); Specific Gravity,Urine 1.005 (1.001-1.035); Urobilinogen,Urine <2.0 mg/dL (<2.0)
[2022-03-13 11:58] LABS: Glucose,Whole Blood 140 mg/dL (70-110)
--- NOTE | 2022-03-13 12:10 | P.PN ---
Subjective Progress Note Date: 03/13/22 HISTORY OF PRESENTING ILLNESS This is a pleasant 46-year-old with past medical history significant for hyp ertension, diabetes mellitus type 2, tobacco abuse, family history of CAD. He follows in the office with Dr Olson. He states he has been having off-and-on chest pain over last 1 week. The chest pain started and then unfortunately he also had right upper and right lower extremity weakness. He has never had symptoms similar to this in the past. He stayed at home and was unable to walk and fell once or twice. He denies any back or head trauma. He does have a strong family history of CAD. EKG shows sinus rhythm with Q waves V1-V3 and I and aVL with ST elevations. He was given Nitro x 1 and states his chest pain has resolved. He additionally notes he has been somewhat lightheaded as well as off-balance. 03/12 Patient seen and examined. Patient states he is having mild improvement in his right lower extremity movement as well as right hand. He denies any shortness of breath. He did have 1 episode of chest pain overnight for approximately 15- 20 minutes and this improved with nitro. No pain since. He was started on metoprolol and blood pressures stable. CT had shown left carotid 100% occlusion and carotid ultrasound verifies 100% occlusion. No recommendations for neuro intervention. CT brain showing no bleed. He has been maintained on heparin drip 03/13 Patient denies chest pain at the time of evaluation but is vague about the previous chest pain during the night and received nitroglycerin. He denies shortness of breath. He is doing exercises in bed for CVA weakness. His blood pressure 109/74 heart rate 79. BUN 13 and creatinine 0.9. MRI of the brain revealed evolving acute infarct high left frontal and parietal lobes confirmed PHYSICAL EXAMINATION Vital signs reviewed. CONSTITUTIONAL: No apparent distress, +right hemiparesis HEENT: Head is normocephalic. Pupils are equal, round. Sclerae anicteric. Mucous membranes of the mouth are moist. No JVD. No carotid bruit. CHEST EXAMINATION: Lungs are clear to auscultation. No chest wall tenderness is noted on palpation or with deep breathing. HEART EXAMINATION: Regular rate and rhythm. S1, S2 heard. No murmurs, gallops or rub. ABDOMEN: Soft, nontender. Positive bowel sounds. EXTREMITIES: 2+ peripheral pulses, no lower extremity edema and no calf tenderness. NEUROLOGIC EXAMINATION: Patient is awake, alert and oriented x3. ASSESSMENT 1. Late presenting anterolateral STEMI, appears may have completed infarct with Q waves on EKG however still having intermittent chest pain 2. Acute right upper and lower extremity weakness most consistent with acute stroke. 3. Tobacco abuse 4. Strong family history CAD 5. Left carotid 100% stenosis PLAN Patient was placed on heparin, aspirin and Plavix and currently relatively stable. Did have 1 episode of chest pain overnight which may be a good sign that there may be some viable tissue. Eventually patient will need heart catheterization. Some increased risk of hemorrhagic conversion with increased heparin demand during PCI. Likely heart catheterization on Tuesday pending neurology recommendations. Continue increased dose of Lopressor 50 mg twice daily Nurse practitioner note has been reviewed, I agree with the documented findings and plan of care. Patient was seen and examined. Objective - Vital Signs Vital signs: Vital Signs Temp 98.2 F 03/13/22 07:54 Pulse 79 03/13/22 08:09 Resp 15 03/13/22 08:09 BP 109/74 03/13/22 07:54 Pulse Ox 97 03/13/22 07:54 FiO2 Intake & Output 03/12/22 03/13/22 03/13/22 18:59 06:59 18:59 Intake Total 540 Output Total 650 120 600 Balance -110 -120 -600 Intake: IV 300 Sodium Chloride 0.9% 1, 300 000 ml @ 100 mls/hr IV . Q10H [facility] Rx#:[id number] Oral 240 Output: Urine 650 120 600 Other: Voiding Method Urinal Urinal Toilet Urinal # Voids 1 - Labs CBC & Chem 7: 03/13/22 08:10 03/13/22 08:10 Labs: Abnormal Lab Results - Last 24 Hours (Table) 03/12/22 03/13/22 03/13/22 Range/Units 06:16 06:04 08:10 RBC 3.82 L (4.30-5.90) m/uL Hgb 11.3 L (13.0-17.5) gm/dL Hct 34.0 L (39.0-53.0) % APTT (22.0-30.0) sec Chloride (98-107) mmol/L Glucose (74-99) mg/dL POC Glucose (mg/dL) 167 H (70-110) mg/dL AST (17-59) U/L HDL Cholesterol 32.50 L (40.00-60.00) mg/dL 03/13/22 03/13/22 Range/Units 08:10 08:10 RBC (4.30-5.90) m/uL Hgb (13.0-17.5) gm/dL Hct (39.0-53.0) % APTT 48.5 H (22.0-30.0) sec Chloride 108 H (98-107) mmol/L Glucose 202 H (74-99) mg/dL POC Glucose (mg/dL) (70-110) mg/dL AST 60 H (17-59) U/L HDL Cholesterol (40.00-60.00) mg/dL Microbiology - Last 24 Hours (Table) 03/11/22 15:08 Blood Culture - Preliminary Blood No Growth after 24 hours
[2022-03-13 12:22] LABS: Chol/HDL Ratio 3.23 Ratio; LDL Cholesterol,Calculated 63.7 mg/dL (0.0-131.0); VLDL Calculation 13.58 mg/dL (5.00-40.00)
--- NOTE | 2022-03-13 13:05 | P.PN ---
Subjective Progress Note Date: 03/13/22 The patient seen at bedside and she feels he has some slight improvement in the right upper extremity. Denies of any new neurological issues. Objective - Vital Signs Vital signs: Vital Signs Temp 98.2 F 03/13/22 07:54 Pulse 72 03/13/22 11:20 Resp 16 03/13/22 11:20 BP 108/73 03/13/22 11:20 Pulse Ox 98 03/13/22 11:20 FiO2 Intake & Output 03/12/22 03/13/22 03/13/22 18:59 06:59 18:59 Intake Total 540 Output Total 650 120 800 Balance -110 -120 -800 Intake: IV 300 Sodium Chloride 0.9% 1, 300 000 ml @ 100 mls/hr IV . Q10H [facility] Rx#:[id number] Oral 240 Output: Urine 650 120 800 Other: Voiding Method Urinal Urinal Toilet Urinal # Voids 1 1 - Exam GENERAL: The patient is lying in bed and is not in acute distress. NEUROLOGICAL: Higher mental function: The patient is awake, alert, oriented to self, place and time. Patient is following commands. No aphasia and no neglect. Cranial nerves: The pupils are round, equal and reactive to light and accommodation. Visual banks are full to confrontation throughout. 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 Facial sensation is normal to touch throughout. The facial strength is normal throughout. Hearing is normal bilaterally to hand rub. Tongue is midline and moved [id number] without any difficulty. No dysarthria is noted. Shoulder severely weak over the right upper while normal over the left. Motor: The strength is right hand strength is 4+ otherwise rest of right upper is 0. Right lower is right hip flexion/exntesion is 2-3, right knee is 2-3 (more 2). Right ankle is 0. Left is 5/5. Decrease tone over the right lower. Normal bulk. Cerebellum: Normal on the left but unable to assess right because of weakness. Sensation: Sensation is normal to touch throughout. Reflexes (right/left): 3+ over the right while left is 2+. Plantars are upgoing bilaterally. Some of the workup during his hospital visit consisted of: Lipid panel is triglyceride of 75, cholesterol of 127, LDL 79 and HDL is 32. AST of 170 ALT is 59 potassium 5.3. Initial troponin is 53. Most current is 43 Urine tox screen is not detected. EKG is reported as sinus tachycardia. Anterolateral myocardial infarction probably recent. Acute ME CT of the head is reported as subcortical hypodensity posterior left parietal lobe with cortical/subcortical hypodensity medial left frontal parietal junction, left parafalcine region and adjacent to the lateral/superior left frontal lobe. Correlate for acute to subacute infarct. No midline shift. No herniation or acute intracranial hemorrhage. I personally reviewed that CT now agree with the report and I feel changes seem more subacute. CT angiography of the head is reported as proximal left ICA occlusion, 1 cm above its origin. No urinary or dissection seen at the level of the aortic arch. No other hemodynamically significant carotid or vertebral artery stenosis in the neck. CT angiography of the head is reported as left ICA occlusion but with reconstitution at the ophthalmic segment and distally likely from the retrograde flow from the anterior and posterior communicating artery. The remainder of the anterior and posterior circulation opacity normal. Carotid duplex: Obstruction of the left internal carotid artery. Intimal thickening present bilaterally. MRI of the brain is reported as evolving acute infarct in the high left frontal parietal lobe is confirmed. Background mild nonspecific white matter changes is present seen better on MRI versus CT fever product of chronic small vessel ischemic changes. I personally reviewed the MRI and agree with the report. 2-D echo was reported as impaired left ventricular function. Ejection fraction of 35-40%. Mid ventricular and apical akinesia. - Labs CBC & Chem 7: 03/13/22 08:10 03/13/22 08:10 Labs: Abnormal Lab Results - Last 24 Hours (Table) 03/12/22 03/13/22 03/13/22 Range/Units 06:16 06:04 08:10 RBC 3.82 L (4.30-5.90) m/uL Hgb 11.3 L (13.0-17.5) gm/dL Hct 34.0 L (39.0-53.0) % APTT (22.0-30.0) sec Chloride (98-107) mmol/L Glucose (74-99) mg/dL POC Glucose (mg/dL) 167 H (70-110) mg/dL AST (17-59) U/L HDL Cholesterol 32.50 L (40.00-60.00) mg/dL Urine Glucose (UA) (Negative) 03/13/22 03/13/22 03/13/22 Range/Units 08:10 08:10 10:24 RBC (4.30-5.90) m/uL Hgb (13.0-17.5) gm/dL Hct (39.0-53.0) % APTT 48.5 H (22.0-30.0) sec Chloride 108 H (98-107) mmol/L Glucose 202 H (74-99) mg/dL POC Glucose (mg/dL) (70-110) mg/dL AST 60 H (17-59) U/L HDL Cholesterol 34.70 L (40.00-60.00) mg/dL Urine Glucose (UA) 2+ H (Negative) 03/13/22 Range/Units 11:50 RBC (4.30-5.90) m/uL Hgb (13.0-17.5) gm/dL Hct (39.0-53.0) % APTT (22.0-30.0) sec Chloride (98-107) mmol/L Glucose (74-99) mg/dL POC Glucose (mg/dL) 140 H (70-110) mg/dL AST (17-59) U/L HDL Cholesterol (40.00-60.00) mg/dL Urine Glucose (UA) (Negative) Microbiology - Last 24 Hours (Table) 03/11/22 15:08 Blood Culture - Preliminary Blood No Growth after 24 hours Assessment and Plan Assessment: This is a 46-year-old gentleman with weakness of the right side initially started about 8 days ago that is progressively worsening and then noticed right upper and had a fall about 3 days ago. Also had chest pain for the past 8 days. Acute to subacute ischemic stroke (feel more subacute). Rght sided hemiparesis and started about 8 days (right upper is worse than lower). Etiology seems embolic (artery to artery vs cardiac). Left ICA occlusion STEMI Impaired left ventricular function with ejection fraction of 35-40% Diabetes mellitus Hypertension Tobacco use Ramón family history of coronary artery disease. Plan: Continue aspirin 325mg daily as well as Plavix 75 mg daily both new for secondary stroke prophylaxis. Also on Lipitor 80mg daily. On heparin drip for his STEMI. Avoid boluses and keep the PTT between 40 and 60 from neurological perspective. Consulted vascular surgery team for carotid stenosis. No intervention for Left ICA since is completely occluded and they recommended outpatient surveillance of right ICA. Ordered HbA1c. PT OT and [employer] are consulted Cardiology is on board and considering cardiac cath possibly Tuesday. Continue neuro checks On cardiac monitoring Cardiology is on board Patient is counseled on tobacco cessation. For DVT prophylaxis patient is on heparin drip. Condition is very guarded The plan is discussed with patient. Will follow-up patient sporadically. Dr. Rodriguez will start neurology service this Tuesday A.M. Time with Patient: Less than 30
[2022-03-13] MEDS: HEPARIN SOD,PORK IN 0.45% NACL 25,000 UNIT in 0.45% NACL 1 250ML.BAG IV SCH (15:41)
[2022-03-13] MEDS: metFORMIN 500 MG TAB PO SCH (16:58)
[2022-03-13 17:11] LABS: Glucose,Whole Blood 166 mg/dL (70-110)
[2022-03-13 21:13] LABS: Glucose,Whole Blood 159 mg/dL (70-110)
[2022-03-13] MEDS: FLUTICASONE 50MCG/SPRAY NASAL 16GM EA NOSTRIL SCH (21:47)
[2022-03-14 06:16] LABS: Glucose,Whole Blood 130 mg/dL (70-110)
[2022-03-14] MEDS: PANTOPRAZOLE 40 MG TABLET PO SCH (06:24)
[2022-03-14] MEDS: LEVOTHYROXINE 100 MCG TAB PO SCH (06:24)
[2022-03-14] MEDS ORDERED: HEPARIN SODIUM,PORCINE 2,500 UNIT in SODIUM CHLORIDE 0.9% 250 ML IRRIGATION PRN (07:00)
[2022-03-14] MEDS ORDERED: HEPARIN SODIUM,PORCINE 10,000 UNIT in SODIUM CHLORIDE 0.9% 1,000 ML IRRIGATION PRN (07:00)
[2022-03-14 07:47] LABS: Basophils % (A) 0 %; Eosinophils # (A) 0.1 k/uL (0-0.7); Eosinophils % (A) 2 %; HCT 34.1 % (39.0-53.0); HGB 11.5 gm/dL (13.0-17.5); Lymphocytes # (A) 2.1 k/uL (1.0-4.8); Lymphocytes % (A) 27 %; MCH 29.3 pg (25.0-35.0); MCHC 33.8 g/dL (31.0-37.0); MCV 86.8 fL (80.0-100.0); Monocytes # (A) 0.4 k/uL (0-1.0); Monocytes % (A) 6 %; Neutrophils # (A) 4.9 k/uL (1.3-7.7); Neutrophils % (A) 63 %; Platelet Count 325 k/uL (150-450); RBC 3.93 m/uL (4.30-5.90); RDW 13.9 % (11.5-15.5); WBC 7.7 k/uL (3.8-10.6)
[2022-03-14 08:18] LABS: African American GFR (CKD) >90 (>60 ml/min/1.73 sqM); Anion Gap 5 mmol/L; Blood Urea Nitrogen 12 mg/dL (9-20); Calcium 8.8 mg/dL (8.4-10.2); Carbon Dioxide 24 mmol/L (22-30); Chloride 109 mmol/L (98-107); Glucose 122 mg/dL (74-99); Non-African American GFR(CKD) >90 (>60 ml/min/1.73 sqM); Potassium 3.9 mmol/L (3.5-5.1); Sodium 138 mmol/L (137-145)
[2022-03-14] MEDS: lisinopriL 10 MG TAB PO SCH (08:53)
[2022-03-14] MEDS ORDERED: ASPIRIN 325 MG TAB PO STA (09:02)
[2022-03-14] MEDS ORDERED: ATORVASTATIN 80 MG TAB PO STA (09:02)
[2022-03-14] MEDS ORDERED: ALPRAZolam 0.5 MG TAB PO PRN (09:02)
[2022-03-14] MEDS ORDERED: NITROGLYCERIN SL TABS 0.4 MG TAB SUBLINGUAL PRN ×2 (09:02→14:11)
[2022-03-14] MEDS ORDERED: ALPRAZolam 0.25 MG TAB PO PRN (09:02)
[2022-03-14] MEDS: ASPIRIN 325 MG TAB PO SCH (09:08)
[2022-03-14] MEDS: ATORVASTATIN 80 MG TAB PO SCH (09:08)
[2022-03-14] MEDS: METOPROLOL TARTRATE 50 MG TAB PO SCH ×2 (09:11→21:41)
[2022-03-14 11:38] LABS: Glucose,Whole Blood 134 mg/dL (70-110)
[2022-03-14] MEDS: CLOPIDOGREL 75 MG TAB PO SCH (12:57)
[2022-03-14] MEDS: NICOTINE 14MG/24HR PATCH TRANSDERM SCH ×2 (12:57→18:36)
[2022-03-14] MEDS: metFORMIN 500 MG TAB PO SCH (12:57)
[2022-03-14] MEDS: LORATADINE 10 MG TAB PO SCH (12:57)
[2022-03-14] MEDS ORDERED: HEPARIN SODIUM 1,000 UN/ML (10ML VL) ONE (12:58)
[2022-03-14] MEDS ORDERED: fentaNYL (PF) 50 MCG/ML 2 ML AMP ONE (12:58)
[2022-03-14] MEDS ORDERED: VERAPAMIL 2.5 MG/ML 2 ML AMP ONE (12:58)
[2022-03-14] MEDS ORDERED: MIDAZOLAM 2 MG/2 ML VIAL IVP ONE ×2 (13:07→13:22)
[2022-03-14] MEDS ORDERED: LIDOCAINE 1% INJ 10MG/ML (5 ML VIAL-PF) SQ ONE (13:07)
[2022-03-14] MEDS: fentaNYL (PF) 50 MCG/1 ML VIAL IVP ONE ×2 (13:07→13:22)
[2022-03-14] MEDS ORDERED: IV FLUID CONTINUATION 1,000 ML IV ONE (13:09)
[2022-03-14] MEDS: VERAPAMIL SYRINGE (5 MG/10 ML) INTRAARTER ONE ×2 (13:10→13:37)
[2022-03-14] MEDS: HEPARIN SODIUM 1,000 UN/ML (10ML VL) IV ONE ×4 (13:15→14:09)
[2022-03-14] MEDS ORDERED: SODIUM CHLORIDE 0.9% 1,000 ML IV ONE (13:25)
[2022-03-14] MEDS ORDERED: CLOPIDOGREL 75 MG TAB ONE (13:32)
[2022-03-14] MEDS ORDERED: CLOPIDOGREL 75 MG TAB PO ONE (13:37)
[2022-03-14] MEDS ORDERED: NITROGLYCERIN 1000MCG/10ML SYRINGE INTRACORON ONE (13:53)
[2022-03-14] MEDS ORDERED: IOPAMIDOL-370 125ML BTL INJ ONE (13:54)
[2022-03-14] MEDS ORDERED: IOPAMIDOL-370 100ML BTL INJ ONE (14:09)
[2022-03-14] MEDS ORDERED: ATROPINE SULFATE 0.1 MG/ML 10ML SYRINGE IV PRN (14:11)
[2022-03-14] MEDS ORDERED: RX INFO: IV CONTRAST WAS GIVEN 1 EACH MISC MISCELLANE PRN (14:11)
[2022-03-14] MEDS ORDERED: ZOLPIDEM 5 MG TAB PO PRN (14:11)
[2022-03-14] MEDS ORDERED: MAG HYDROX/AL HYDROX/SIMETH 30 ML CUP PO PRN (14:11)
[2022-03-14] MEDS ORDERED: SODIUM CHLORIDE 0.9% 1,000 ML in EMPTY BAG 1 BAG IV SCH (14:15)
--- NOTE | 2022-03-14 14:19 | P.CARDCATH ---
Date of Procedure: 03/14/22 Description of Procedure: PERCUTANEOUS TRANSLUMINAL CORONARY ANGIOPLASTY CLINICAL INFORMATION: The patient is a 46-year-old male who presented with evidence of anterolateral wall myocardial infarction and CVA, he was evaluated by Dr. Olson and neurology, had evidence of ischemic cardiomyopathy. He underw ent cardiac catheterization and was found to have severe obstructive disease involving the proximal LAD . Recommendations were made regarding angioplasty and stenting. The procedure as well as the risks and the complications were discussed with the patient who was in full understanding and agreement. PROCEDURE: A 6 German FL 3-1/2 guiding catheter was introduced into the system. After cannulating the left main, a 0.014 BMW was advanced across the lesion and positioned distally. Following that a 2.5 x 12 mm Treck balloon was advanced and inflated at 8 atmosphere. Following that a 3.25 x 18 mm Xience nikita point stent was deployed. It was dilated at 16. After the last inflation, after appropriate wait, the balloon and the guidewire were withdrawn back into the guiding catheter. Images were obtained and repeated. Those images reveal stable successful stenting. At that point, the guiding catheter, the balloon, and guidewire were removed. Following that a 5-German 5 bend right Jessie catheter was introduced and images of the RCA were performed. After obtaining the images that catheter was removed. The sheath was removed. Hemostasis was obtained with deployment of a TR band. There were no immediate complications. The patient was returned to the room in stable condition. Of note, the patient received a total of 8500 units of heparin units of heparin as well as Plavix. His ACT was followed. There was no immediate complications. He had no significant EKG changes or chest discomfort with the inflations RESULTS: Successful stenting of the proximal LAD with reduction of stenosis from 95 % to 0 %. Dominant right with mild plaque in the midsegment of 20-30%, the rest of the vessel has no high-grade stenosis RECOMMENDATIONS: I would recommend continuing aspirin and Plavix for 1 year with no interruption in addition to aggressive coronary risks modifications. The findings and recommendations were discussed with the patient , he was in full understanding and agreement. Duration of sedation: 29 minutes
[2022-03-14 16:41] LABS: Glucose,Whole Blood 103 mg/dL (70-110)
--- NOTE | 2022-03-14 18:04 | PN ---
PROGRESS NOTE DATE OF SERVICE: 03/13/2022 SUBJECTIVE: This is a 46-year-old gentleman, who was admitted with acute stroke, also had acute myocardial infarction. The patient had a history of noncompliance. The patient had left carotid occlusion as well. Neurology and Cardiology are following the patient closely. Cardiology is planning tentative cardiac catheterization for further evaluation. The right side is weak, but the right leg is slightly improving at this time. PAST MEDICAL HISTORY: Reviewed. REVIEW OF SYSTEMS: Fourteen-point review is negative except as mentioned earlier. CURRENT MEDICATIONS: Reviewed include Lipitor. Doses and rest of the medications noted. PHYSICAL EXAMINATION: VITAL SIGNS: Pulse is 79, blood pressure 109/74, respirations 15. CHEST: Clear to auscultation. CARDIOVASCULAR: S1 and S2. ABDOMEN: Soft. NERVOUS SYSTEM: Right hemiplegia. LABORATORY DATA: Reviewed. ASSESSMENT: 1. Acute stroke involving the left temporoparietal area causing right-sided weakness. 2. Acute ST-segment elevation anterior wall myocardial infarction with elevated troponin and QRS complex and ST elevation anteriorly. 3. No evidence of any left ventricular thrombus. 4. Hypertension. 5. Diabetes mellitus, type 2. 6. Left carotid occlusion. 7. Multiple medical issues. RECOMMENDATIONS: Recommend to continue current medications, symptomatic treatment, and antiplatelet agents. PT and OT evaluation. DVT prophylaxis. Repeat labs. Closely follow with Cardiology and Neurology. Possible cardiac catheterization. Prognosis is guarded. Further recommendations to follow. See orders for details. MMODL / IJN: [id number] /
[2022-03-14] MEDS: SPIRONOLACTONE 25 MG TAB PO SCH (18:35)
[2022-03-14 20:02] LABS: Glucose,Whole Blood 156 mg/dL (70-110)
[2022-03-14] MEDS: FLUTICASONE 50MCG/SPRAY NASAL 16GM EA NOSTRIL SCH (21:44)
--- NOTE | 2022-03-15 04:04 | PN ---
PROGRESS NOTE DATE OF SERVICE: 03/14/2022 SUBJECTIVE: This 46-year-old gentleman with acute myocardial infarction, acute stroke, underwent cardiac catheterization, which showed LAD stenosis, stenting was done. There is no history of fever, rigors, chills. OBJECTIVE: VITAL SIGNS: Pulse is 74, blood pressure n, respiration 16. CHEST: Clear to auscultation. CARDIOVASCULAR: S1 and S2. ABDOMEN: Soft. NERVOUS SYSTEM: Right hemiplegia. LABORATORY DATA: Noted. ASSESSMENT: 1. Acute stroke involving left temporal and parietal area with right-sided weakness. 2. Acute ST-segment elevation myocardial infarction, status post cardiac catheterization and left anterior descending stenting. 3. Hypertension. 4. No evidence of intraventricular thrombus on the 2D echo. 5. Diabetes mellitus, type 2. 6. History of noncompliance. 7. Left carotid occlusion. 8. Multiple medical issues. RECOMMENDATIONS: Recommend to continue current medications and symptomatic treatment. Continue the antiplatelet agents. Closely follow with Cardiology and neurology. PT and OT evaluation. Prognosis is extremely guarded because of multiple complex medical issues and further recommendations to follow. MMODL / IJN: [id number] / MTDD
[2022-03-15 06:06] LABS: Glucose,Whole Blood 151 mg/dL (70-110)
[2022-03-15] MEDS: PANTOPRAZOLE 40 MG TABLET PO SCH (07:02)
[2022-03-15] MEDS: LEVOTHYROXINE 100 MCG TAB PO SCH (07:03)
--- NOTE | 2022-03-15 07:09 | P.CONS ---
History of Present Illness - Chief Complaint Gait disturbance, right hemiplegia - History of Present Illness I had the opportunity to see patient for inpatient rehab consultation today. Patient admitted to Dr. Hernandez March 09 to acute onset right-sided weakness of 2-3 days' duration. Seen by cardiology for a STEMI. Cardiomyopathy. Seen by neurology, Dr. Edgardo Muñiz for the stroke. Seen by vascular surgery who notes left internal carotid occlusion but not requiring surgery currently. Seen by Dr. Barron for ICU care. Diagnostic tests chest x-ray negative. Initial head CT with left parietal subcortical infarct. Angiogram CT demonstrates emphysematous change, bovine aortic arch and left ICA occlusion. Carotid Doppler demonstrates left ICA occlusion. Brain MRI with evolving left frontal parietal stroke and nonspecific degenerative change. Has started therapy. PT reports minimal assistance for bed mobility, transfer, gait 10 feet with roller walker. Slow and short steps. OT reports independent with feeding, supervision for grooming and upper dressing, moderate assistance for lower dressing and bathing and minimal assistance for toileting and toilet transfers. Speech therapy prescribed. Previous functional history as elicited from patient: 46-year-old right-handed white male who is single lives in one floor home with brother and a friend. Patient on disability due to diabetes and other medical conditions. Describes previously independent with own cooking, laundry, driving, standing shower and gait with standard cane. PCP Dr. Carr. Review of Systems Review of systems: ENT: Denies sneezes or discharge. Eyes: Denies discharge or photophobia. Cardiac: Denies chest pain or palpitation. Pulmonary: Denies cough or shortness of breath. Gastrointestinal: Denies nausea, emesis, constipation, diarrhea. Genitourinary: Denies discharge or frequency. Musculoskeletal: Denies muscle or bone aches. Neurologic: Right-sided weakness and numbness. Endocrine: Denies shakes or sweats. Oncology: Denies cancers. Dermatologic: Denies rash, itching, pruritus. ALLERGY/immunology: Denies sneezes, rashes. Past Medical History Past Medical History: Diabetes Mellitus, Hypertension History of Any Multi-Drug Resistant Organisms: None Reported Past Surgical History: No Surgical Hx Reported Past Anesthesia/Blood Transfusion Reactions: No Reported Reaction Smoking Status: Current every day smoker Past Alcohol Use History: None Reported Past Drug Use History: None Reported - Past Family History Father Family Medical History: Coronary Artery Disease (CAD), Diabetes Mellitus, Hyperlipidemia, Myocardial Infarction (IA) Mother Family Medical History: Cancer, COPD Medications and Allergies Home Medications Medication Instructions Recorded Confirmed Type Fluticasone Nasal [place] [Flonase 2 spray EA NOSTRIL HS 03/11/22 03/11/22 History Nasal [place]] Levothyroxine Sodium [Synthroid] 100 mcg PO DAILY 03/11/22 03/11/22 History Loratadine [Claritin] 10 mg PO DAILY 03/11/22 03/11/22 History Omeprazole [PriLOSEC] 20 mg PO DAILY 03/11/22 03/11/22 History lisinopriL [Zestril] 10 mg PO DAILY 03/11/22 03/11/22 History metFORMIN HCL [Glucophage] 1,000 mg PO BID-W/MEALS 03/11/22 03/11/22 History Allergies Allergy/AdvReac Type Severity Reaction Status Date / Time amoxicillin Allergy Severe Anaphylaxis Verified 03/11/22 17:57 latex Allergy Rash/Hives Verified 03/11/22 17:57 shellfish derived [Shellfish] Allergy Anaphylaxis Verified 03/11/22 12:01 Physical Exam Vitals: Vital Signs Temp Pulse Pulse Resp BP BP Pulse Ox 03/15/22 04:00 98.0 F 66 18 118/67 98 03/15/22 02:00 18 03/15/22 00:00 98.2 F 66 18 117/76 100 03/14/22 20:00 97.5 F L 74 16 108/68 98 03/14/22 17:00 97.7 F 66 16 109/63 98 03/14/22 15:56 68 16 79/51 97 03/14/22 15:26 57 L 16 82/52 96 03/14/22 14:56 60 16 81/52 96 03/14/22 14:41 60 16 83/52 97 03/14/22 14:26 98.0 F 70 16 84/53 97 03/14/22 14:00 62 16 03/14/22 12:00 97.7 F 62 16 106/69 99 03/14/22 08:00 98.2 F 74 16 95/58 100 Intake and Output 03/14/22 03/15/22 03/15/22 22:59 06:59 14:59 Other: Voiding Method Toilet Toilet Urinal Urinal # Voids 1 3 Skin: Good color, texture, turgor. General: Medium build and comfortable appearance. Head: Normocephalic, atraumatic. Eyes: Symmetric. Pupils equal round. Ears: Symmetric. Hearing within normal limits. Mouth: Clear. Neck: Supple. Carotid without bruit. Cardiac: Regular rate and rhythm. Lungs: Clear anteriorly and posteriorly. Abdomen: Soft active nontender. Extremities: Normal tone. Neurological: Mental status: Alert, cooperative, pleasant. Cranial nerves: Symmetric facial tone and trapezius. Motor: Normal strength and isolation left side. Right side poor. Sensation: Intact left side. Diminished right side. DTRs: Symmetric and equal throughout. Mobility: Requires physical assist for bed mobility. Results CBC & Chem 7: 03/14/22 07:07 03/14/22 07:07 Labs: Abnormal Lab Results - Last 24 Hours (Table) 03/14/22 03/14/22 03/14/22 Range/Units 07:07 07:07 07:07 RBC 3.93 L (4.30-5.90) m/uL Hgb 11.5 L (13.0-17.5) gm/dL Hct 34.1 L (39.0-53.0) % APTT 44.8 H (22.0-30.0) sec Chloride (98-107) mmol/L Glucose (74-99) mg/dL POC Glucose (mg/dL) (70-110) mg/dL Hemoglobin A1c 6.4 H (0.0-6.0) % 03/14/22 03/14/22 03/14/22 Range/Units 07:07 11:37 20:00 RBC (4.30-5.90) m/uL Hgb (13.0-17.5) gm/dL Hct (39.0-53.0) % APTT (22.0-30.0) sec Chloride 109 H (98-107) mmol/L Glucose 122 H (74-99) mg/dL POC Glucose (mg/dL) 134 H 156 H (70-110) mg/dL Hemoglobin A1c (0.0-6.0) % 03/15/22 Range/Units 06:04 RBC (4.30-5.90) m/uL Hgb (13.0-17.5) gm/dL Hct (39.0-53.0) % APTT (22.0-30.0) sec Chloride (98-107) mmol/L Glucose (74-99) mg/dL POC Glucose (mg/dL) 151 H (70-110) mg/dL Hemoglobin A1c (0.0-6.0) % Microbiology - Last 24 Hours (Table) 03/11/22 15:08 Blood Culture - Preliminary Blood No Growth after 72 hours Assessment and Plan (1) Acute CVA (cerebrovascular accident) Current Visit: Yes Status: Acute Code(s): I63.9 - CEREBRAL INFARCTION, UNSPECIFIED SNOMED Code(s): 897354408 (2) Myocardial infarction Current Visit: Yes Status: Acute Code(s): I21.9 - ACUTE MYOCARDIAL INFARCTION, UNSPECIFIED SNOMED Code(s): 31643313 Plan: Comments and plan: At this time discussed possible inpatient rehab with patient. He is related at able refuse this. Feels that he has discharge or return to home work out with his brother and friend. Also reports to supportive female friends, one is a nurse and one is a physical therapist feels that he'll be able to get the care and therapy that he needs at home. Nurse is already aware of this perspective.
[2022-03-15] MEDS: HEPARIN SOD,PORK IN 0.45% NACL 25,000 UNIT in 0.45% NACL 1 250ML.BAG IV SCH (07:39)
[2022-03-15] MEDS: METOPROLOL TARTRATE 50 MG TAB PO SCH ×2 (08:37→20:28)
[2022-03-15] MEDS: NICOTINE 14MG/24HR PATCH TRANSDERM SCH (08:37)
[2022-03-15] MEDS: lisinopriL 10 MG TAB PO SCH (08:37)
[2022-03-15] MEDS: SPIRONOLACTONE 25 MG TAB PO SCH (08:37)
[2022-03-15] MEDS: LORATADINE 10 MG TAB PO SCH (08:37)
[2022-03-15] MEDS: ASPIRIN 81 MG PO SCH (08:37)
[2022-03-15] MEDS: ATORVASTATIN 80 MG TAB PO SCH (08:37)
[2022-03-15] MEDS: CLOPIDOGREL 75 MG TAB PO SCH (08:38)
[2022-03-15 08:51] LABS: African American GFR (CKD) >90 (>60 ml/min/1.73 sqM); Anion Gap 4 mmol/L; Blood Urea Nitrogen 11 mg/dL (9-20); Calcium 8.5 mg/dL (8.4-10.2); Carbon Dioxide 25 mmol/L (22-30); Chloride 110 mmol/L (98-107); Glucose 118 mg/dL (74-99); Non-African American GFR(CKD) 90 (>60 ml/min/1.73 sqM); Potassium 3.8 mmol/L (3.5-5.1); Sodium 139 mmol/L (137-145)
[2022-03-15 12:08] VITALS: BMI 24.0
[2022-03-15 12:11] LABS: Glucose,Whole Blood 195 mg/dL (70-110)
--- NOTE | 2022-03-15 12:50 | P.PN ---
Subjective Progress Note Date: 03/15/22 HISTORY OF PRESENTING ILLNESS This is a pleasant 46-year-old with past medical history significant for hyp ertension, diabetes mellitus type 2, tobacco abuse, family history of CAD. He follows in the office with Dr Olson. He states he has been having off-and-on chest pain over last 1 week. The chest pain started and then unfortunately he also had right upper and right lower extremity weakness. He has never had symptoms similar to this in the past. He stayed at home and was unable to walk and fell once or twice. He denies any back or head trauma. He does have a strong family history of CAD. EKG shows sinus rhythm with Q waves V1-V3 and I and aVL with ST elevations. He was given Nitro x 1 and states his chest pain has resolved. He additionally notes he has been somewhat lightheaded as well as off-balance. 03/12 Patient seen and examined. Patient states he is having mild improvement in his right lower extremity movement as well as right hand. He denies any shortness of breath. He did have 1 episode of chest pain overnight for approximately 15- 20 minutes and this improved with nitro. No pain since. He was started on metoprolol and blood pressures stable. CT had shown left carotid 100% occlusion and carotid ultrasound verifies 100% occlusion. No recommendations for neuro intervention. CT brain showing no bleed. He has been maintained on heparin drip 03/13 Patient denies chest pain at the time of evaluation but is vague about the previous chest pain during the night and received nitroglycerin. He denies shortness of breath. He is doing exercises in bed for CVA weakness. His blood pressure 109/74 heart rate 79. BUN 13 and creatinine 0.9. MRI of the brain revealed evolving acute infarct high left frontal and parietal lobes confirmed 03/15 Patient underwent cardiac catheterization yesterday with successful stenting of the proximal LAD. Dominant right with mild plaque in the mid section of 20-30% and the rest of the vessel has no high-grade stenosis. Recommendation for aspirin, Plavix for 1 year without interruption. These findings were reviewed with the patient at the bedside. Heart rate in the 70s, blood pressure 109/71. Repeat potassium 3.8, BUN 11 creatinine 1.01. outcomes analyst is a sinus rhythm. PHYSICAL EXAMINATION Vital signs reviewed. CONSTITUTIONAL: No apparent distress, +right hemiparesis HEENT: Head is normocephalic. Pupils are equal, round. Sclerae anicteric. Mucous membranes of the mouth are moist. No JVD. No carotid bruit. CHEST EXAMINATION: Lungs are clear to auscultation. No chest wall tenderness is noted on palpation or with deep breathing. HEART EXAMINATION: Regular rate and rhythm. S1, S2 heard. No murmurs, gallops or rub. ABDOMEN: Soft, nontender. Positive bowel sounds. EXTREMITIES: 2+ peripheral pulses, no lower extremity edema and no calf tenderness. NEUROLOGIC EXAMINATION: Patient is awake, alert and oriented x3. ASSESSMENT 1. Late presenting anterolateral STEMI, appears may have completed infarct with Q waves on EKG however still having intermittent chest pain 2. Acute right upper and lower extremity weakness most consistent with acute s troke. 3. Tobacco abuse 4. Strong family history CAD 5. Left carotid 100% stenosis 6. Coronary artery disease status post stent of the proximal LAD 03/14 PLAN Continue patient on aspirin 81 mg daily, Lipitor, Plavix, lisinopril and Lopressor Patient is cleared from cardiology for discharge once cleared by medicine and neurology. Patient to follow-up in the office with Dr. Olson in 1-2 weeks. Nurse practitioner note has been reviewed, I agree with the documented findings and plan of care. Patient was seen and examined. Objective - Vital Signs Vital signs: Vital Signs Temp 97.8 F 03/15/22 08:00 Pulse 76 03/15/22 08:00 Resp 16 03/15/22 08:00 BP 114/78 03/15/22 08:00 Pulse Ox 98 03/15/22 08:00 FiO2 Intake & Output 03/14/22 03/15/22 03/15/22 18:59 06:59 18:59 Intake Total 150 180 Output Total 200 525 Balance -50 -345 Intake: IV 150 Oral 180 Output: Urine 200 525 Other: Voiding Method Toilet Toilet Urinal Urinal # Voids 1 3 - Labs CBC & Chem 7: 03/14/22 07:07 03/15/22 08:21 Labs: Abnormal Lab Results - Last 24 Hours (Table) 03/14/22 03/14/22 03/14/22 Range/Units 07:07 11:37 20:00 Chloride (98-107) mmol/L Glucose (74-99) mg/dL POC Glucose (mg/dL) 134 H 156 H (70-110) mg/dL Hemoglobin A1c 6.4 H (0.0-6.0) % 03/15/22 03/15/22 Range/Units 06:04 08:21 Chloride 110 H (98-107) mmol/L Glucose 118 H (74-99) mg/dL POC Glucose (mg/dL) 151 H (70-110) mg/dL Hemoglobin A1c (0.0-6.0) % Microbiology - Last 24 Hours (Table) 03/11/22 15:08 Blood Culture - Preliminary Blood No Growth after 72 hours
[2022-03-15 16:32] LABS: Glucose,Whole Blood 153 mg/dL (70-110)
[2022-03-15 20:23] LABS: Glucose,Whole Blood 211 mg/dL (70-110)
[2022-03-15] MEDS: HEPARIN SODIUM,PORCINE/PF 5,000 UNIT/0.5 ML SYRINGE SQ SCH ×2 (20:28→20:32)
[2022-03-15] MEDS: FLUTICASONE 50MCG/SPRAY NASAL 16GM EA NOSTRIL SCH (20:28)
--- NOTE | 2022-03-16 00:37 | PN ---
PROGRESS NOTE DATE OF SERVICE: 03/15/2022 SUBJECTIVE: This 46-year-old gentleman, admitted with acute right-sided stroke as well as acute myocardial infarction, had cardiac catheterization and stenting of the LAD. No chest pain. No palpitations. No fever. OBJECTIVE: VITAL SIGNS: Pulse 75, blood pressure ntd, respirations 16. CHEST: Clear to auscultation. CARDIOVASCULAR: S1, S2. ABDOMEN: Soft. NERVOUS SYSTEM: Right hemiplegia. LABORATORY DATA: Reviewed. ASSESSMENT: 1. Acute stroke involving the left temporoparietal area causing right-sided stroke. 2. Acute ST-segment elevation anterior wall myocardial infarction, status post cardiac catheterization and stenting of the LAD. 3. No evidence of any left ventricular thrombus. 4. Hypertension. 5. Diabetes mellitus, type 2. 6. Left carotid occlusion. 7. Multiple medical issues. RECOMMENDATIONS: I recommend to continue current medications and symptomatic treatment. Continue with antiplatelet agents. Continue with DVT prophylaxis. Closely follow with Cardiology and Neurology, and possible inpatient rehab versus ECF rehab. Prognosis guarded. Further recommendations to follow. ALLYSONL / IJN: [id number] / MTDD
[2022-03-16 05:18] VITALS: RESP 16
[2022-03-16 06:11] LABS: Glucose,Whole Blood 140 mg/dL (70-110)
[2022-03-16] MEDS: LEVOTHYROXINE 100 MCG TAB PO SCH (06:31)
[2022-03-16] MEDS: PANTOPRAZOLE 40 MG TABLET PO SCH (06:31)
[2022-03-16 08:01] LABS: Basophils % (A) 1 %; Eosinophils # (A) 0.1 k/uL (0-0.7); Eosinophils % (A) 2 %; HCT 38.7 % (39.0-53.0); HGB 12.7 gm/dL (13.0-17.5); Hypochromasia Slight; Lymphocytes # (A) 1.5 k/uL (1.0-4.8); Lymphocytes % (A) 22 %; MCHC 32.9 g/dL (31.0-37.0); MCV 91.2 fL (80.0-100.0); Mean Platelet Volume 7.6; Monocytes # (A) 0.5 k/uL (0-1.0); Monocytes % (A) 7 %; Neutrophils # (A) 4.4 k/uL (1.3-7.7); Neutrophils % (A) 65 %; Platelet Count 343 k/uL (150-450); RBC 4.25 m/uL (4.30-5.90); RDW 13.3 % (11.5-15.5); WBC 6.7 k/uL (3.8-10.6)
[2022-03-16 08:13] LABS: ALT 75 U/L (4-49); AST 55 U/L (17-59); African American GFR (CKD) >90 (>60 ml/min/1.73 sqM); Albumin 3.8 g/dL (3.5-5.0); Alkaline Phosphatase 190 U/L (38-126); Anion Gap 5 mmol/L; Blood Urea Nitrogen 13 mg/dL (9-20); Calcium 8.7 mg/dL (8.4-10.2); Carbon Dioxide 26 mmol/L (22-30); Chloride 107 mmol/L (98-107); Glucose 134 mg/dL (74-99); Non-African American GFR(CKD) >90 (>60 ml/min/1.73 sqM); Potassium 3.8 mmol/L (3.5-5.1); Sodium 138 mmol/L (137-145); Total Bilirubin 0.7 mg/dL (0.2-1.3); Total Protein 7.2 g/dL (6.3-8.2)
[2022-03-16] MEDS: HEPARIN SODIUM,PORCINE/PF 5,000 UNIT/0.5 ML SYRINGE SQ SCH (09:11)
[2022-03-16] MEDS: CLOPIDOGREL 75 MG TAB PO SCH (09:13)
[2022-03-16] MEDS: NICOTINE 14MG/24HR PATCH TRANSDERM SCH (09:13)
[2022-03-16] MEDS: METOPROLOL TARTRATE 50 MG TAB PO SCH (09:13)
[2022-03-16] MEDS: ASPIRIN 81 MG PO SCH (09:13)
[2022-03-16] MEDS: lisinopriL 10 MG TAB PO SCH (09:13)
[2022-03-16] MEDS: ATORVASTATIN 80 MG TAB PO SCH (09:13)
[2022-03-16] MEDS: LORATADINE 10 MG TAB PO SCH (09:13)
[2022-03-16] MEDS: SPIRONOLACTONE 25 MG TAB PO SCH (09:13)
--- NOTE | 2022-03-16 10:04 | P.PN ---
Subjective Progress Note Date: 03/15/22 Patient was seen for a follow-up. Patient initially seen by Dr. Edgardo Muñiz. Please refer to his note for details. Patient is a 46-year-old male who presented a days after right-sided weakness and chest pain. Patient has complete left ICA occlusion, left frontal parietal stroke noted on MRI. Patient will be undergoing cardiac catheterization this coming week. Patient currently on heparin drip, aspirin and Plavix. Some of the workup during his hospital visit consisted of: Lipid panel is triglyceride of 75, cholesterol of 127, LDL 79 and HDL is 32. AST of 170 ALT is 59 potassium 5.3. Initial troponin is 53. Most current is 43 Urine tox screen is not detected. EKG is reported as sinus tachycardia. Anterolateral myocardial infarction probably recent. Acute [place] CT of the head is reported as subcortical hypodensity posterior left parietal lobe with cortical/subcortical hypodensity medial left frontal parietal junction, left parafalcine region and adjacent to the lateral/superior left frontal lobe. Correlate for acute to subacute infarct. No midline shift. No herniation or acute intracranial hemorrhage. I personally reviewed that CT now agree with the report and I feel changes seem more subacute. CT angiography of the head is reported as proximal left ICA occlusion, 1 cm above its origin. No aortic dissection seen at the level of the aortic arch. No other hemodynamically significant carotid or vertebral artery stenosis in the neck. CT angiography of the head is reported as left ICA occlusion but with reconstitution at the ophthalmic segment and distally likely from the retrograde flow from the anterior and posterior communicating artery. The remainder of the anterior and posterior circulation opacity normal. Carotid duplex: Obstruction of the left internal carotid artery. Intimal thickening present bilaterally. MRI of the brain is reported as evolving acute infarct in the high left frontal parietal lobe is confirmed. Background mild nonspecific white matter changes is present seen better on MRI versus CT fever product of chronic small vessel ischemic changes. I personally reviewed the MRI and agree with the report. 2-D echo was reported as impaired left ventricular function. Ejection fraction of 35-40%. Mid ventricular and apical akinesia. Objective - Vital Signs Vital signs: Vital Signs Temp 97.8 F 03/15/22 08:00 Pulse 72 03/15/22 16:00 Resp 16 03/15/22 16:00 BP 106/69 03/15/22 16:00 Pulse Ox 97 03/15/22 16:00 FiO2 Intake & Output 03/14/22 03/15/22 03/15/22 18:59 06:59 18:59 Intake Total 150 540 Output Total 200 525 Balance -50 15 Weight 67.5 kg Intake: IV 150 Oral 540 Output: Urine 200 525 Other: Voiding Method Toilet Toilet Toilet Urinal Urinal Urinal # Voids 1 3 - Exam GENERAL: The patient is sitting in the recliner, appears very comfortable. NEUROLOGICAL: Higher mental function: The patient is awake, alert, oriented to self, place and time. Patient is following commands. No aphasia and no neglect. Cranial nerves: The pupils are round, equal and reactive to light and accommodation. Visual banks are full to confrontation throughout. No visual neglect. 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 Facial sensation is normal to touch throughout. The facial strength is normal throughout. Hearing is normal bilaterally to hand rub. Tongue is midline and moved [id number] without any difficulty. No dysarthria is noted. Shoulder severely weak over the right upper while normal over the left. Motor: The strength is right hand publishing director strength is 5- , right biceps 4, triceps 0, deltoid 0. Left upper limb is normal. In the lower extremities hip flexion 4, ankle dorsiflexion 0. Left lower extremity is is normal 5. Decrease tone over the right lower. Normal bulk. Cerebellum: Normal on the left but unable to assess right because of weakness. Sensation: Sensation is normal to touch throughout. No neglect. Reflexes (right/left): 3+ over the right while left is 2+. Plantars are upgoing bilaterally. - Labs CBC & Chem 7: 03/16/22 07:45 03/16/22 07:45 Labs: Abnormal Lab Results - Last 24 Hours (Table) 03/14/22 03/15/22 03/15/22 Range/Units 20:00 06:04 08:21 Chloride 110 H (98-107) mmol/L Glucose 118 H (74-99) mg/dL POC Glucose (mg/dL) 156 H 151 H (70-110) mg/dL 03/15/22 03/15/22 Range/Units 12:10 16:31 Chloride (98-107) mmol/L Glucose (74-99) mg/dL POC Glucose (mg/dL) 195 H 153 H (70-110) mg/dL Microbiology - Last 24 Hours (Table) 03/11/22 15:08 Blood Culture - Preliminary Blood No Growth after 96 hours Assessment and Plan Assessment: This is a 46-year-old gentleman with weakness of the right side initially started about 8 days ago that is progressively worsening and then noticed right upper and had a fall about 3 days ago. Also had chest pain for the past 8 days. Acute to subacute ischemic stroke (feel more subacute). Rght sided hemiparesis and started about 8 days (right upper is worse than lower). Etiology seems embolic (artery to artery vs cardiac). Left ICA occlusion STEMI Impaired left ventricular function with ejection fraction of 35-40% Diabetes mellitus Hypertension Tobacco use Family history of coronary artery disease. Plan: Continue aspirin 325mg daily as well as Plavix 75 mg daily both new for second mick stroke prophylaxis. Also on Lipitor 80mg daily. Consulted vascular surgery team for carotid stenosis. No intervention for Left ICA since is completely occluded and they recommended outpatient surveillance of right ICA. HbA1c 6.4, well controlled. PT OT and VARSITY BASEBALL COACH are consulted. PMNR consult noted. Patient good candidate for inpatient rehab. Patient wants to go home, however. Patient underwent cardiac catheterization 03/14/2022 with successful stenting of the proximal LAD with reduction of stenosis from 95% to 0%. Per cardiology, continue aspirin and Plavix for 1 year with no interruption. Aggressive coronary risks modification. Continue neuro checks On cardiac monitoring Patient is counseled on tobacco cessation. For DVT prophylaxis: Patient on heparin subcu every 12 hours. Condition is very guarded Neurologically clear, if cleared by cardiology.
[2022-03-16 11:28] LABS: Glucose,Whole Blood 199 mg/dL (70-110)
[2022-03-16 12:48] VITALS: BP 94/64; PULSE 67; TEMP 96.5
--- NOTE | 2022-03-16 16:00 | P.PN ---
Subjective Progress Note Date: 03/16/22 03/16/2022: Patient was seen for a follow-up. Patient states he wants to go home. Patient concurs that he had stroke symptoms for 8 days before he came to the hospital. Patient admits to smoking cigarettes 1-1-1/2 pack per day from age 17, until he had back to smoking one fourth pack per day (5-6 cigarettes per day) in the last 2 years. Patient has diabetes for last 9 years. 03/15/2022: Patient was seen for a follow-up. Patient initially seen by Dr. Edgardo Muñiz. Please refer to his note for details. Patient is a 46-year-old male who presented a days after right-sided weakness and chest pain. Patient has complete left ICA occlusion, left frontal parietal stroke noted on MRI. Patient will be undergoing cardiac catheterization this coming week. Patient currently on heparin drip, aspirin and Plavix. Some of the workup during his hospital visit consisted of: Lipid panel is triglyceride of 75, cholesterol of 127, LDL 79 and HDL is 32. AST of 170 ALT is 59 potassium 5.3. Initial troponin is 53. Most current is 43 Urine tox screen is not detected. EKG is reported as sinus tachycardia. Anterolateral myocardial infarction probably recent. Acute [place] CT of the head is reported as subcortical hypodensity posterior left parietal lobe with cortical/subcortical hypodensity medial left frontal parietal junction, left parafalcine region and adjacent to the lateral/superior left frontal lobe. Correlate for acute to subacute infarct. No midline shift. No herniation or acute intracranial hemorrhage. I personally reviewed that CT now agree with the report and I feel changes seem more subacute. CT angiography of the head is reported as proximal left ICA occlusion, 1 cm above its origin. No aortic dissection seen at the level of the aortic arch. No other hemodynamically significant carotid or vertebral artery stenosis in the neck. CT angiography of the head is reported as left ICA occlusion but with reconstitution at the ophthalmic segment and distally likely from the retrograde flow from the anterior and posterior communicating artery. The remainder of the anterior and posterior circulation opacity normal. Carotid duplex: Obstruction of the left internal carotid artery. Intimal thickening present bilaterally. MRI of the brain is reported as evolving acute infarct in the high left frontal parietal lobe is confirmed. Background mild nonspecific white matter changes is present seen better on MRI versus CT fever product of chronic small vessel ischemic changes. I personally reviewed the MRI and agree with the report. 2-D echo was reported as impaired left ventricular function. Ejection fraction of 35-40%. Mid ventricular and apical akinesia. Objective - Vital Signs Vital signs: Vital Signs Temp 96.5 F L 03/16/22 12:46 Pulse 67 03/16/22 12:46 Resp 16 03/16/22 12:46 BP 94/64 03/16/22 12:46 Pulse Ox 100 03/16/22 12:46 FiO2 Intake & Output 03/15/22 03/16/22 03/16/22 18:59 06:59 18:59 Intake Total 540 360 Output Total 525 500 200 Balance 15 -500 160 Weight 67.5 kg Intake: Oral 540 360 Output: Urine 525 500 200 Other: Voiding Method Toilet Toilet Urinal Urinal - Exam GENERAL: The patient is sitting in the recliner, appears very comfortable. NEUROLOGICAL: Higher mental function: The patient is awake, alert, oriented to self, place and time. Patient is following commands. No aphasia and no neglect. Cranial nerves: The pupils are round, equal and reactive to light and accommodation. No Matt syndrome. Visual banks are full to confrontation throughout. No visual neglect. 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 Facial sensation is normal to touch throughout. The facial strength is normal throughout. Hearing is normal bilaterally to hand rub. Tongue is midline and moved [id number] without any difficulty. No dysarthria is noted. Shoulder shrug is severely weak on the right, but normal on the left. . Motor: The strength is right hand dry sand molder strength is 4+- , right biceps 5- triceps 4, deltoid 1-2. Left upper limb is normal. In the lower extremities right hip flexion 4, ankle dorsiflexion 0. Left lower extremity is is normal 5. Decrease tone over the right lower. Normal bulk. Cerebellum: Normal on the left but unable to assess right because of weakness. Sensation: Sensation is normal to touch throughout. No neglect. Reflexes (right/left): 3+ over the right while left is 2+. - Labs CBC & Chem 7: 03/16/22 07:45 03/16/22 07:45 Labs: Abnormal Lab Results - Last 24 Hours (Table) 03/15/22 03/15/22 03/16/22 Range/Units 16:31 20:22 06:09 RBC (4.30-5.90) m/uL Hgb (13.0-17.5) gm/dL Hct (39.0-53.0) % Glucose (74-99) mg/dL POC Glucose (mg/dL) 153 H 211 H 140 H (70-110) mg/dL ALT (4-49) U/L Alkaline Phosphatase (38-126) U/L 03/16/22 03/16/22 03/16/22 Range/Units 07:45 07:45 11:27 RBC 4.25 L (4.30-5.90) m/uL Hgb 12.7 L (13.0-17.5) gm/dL Hct 38.7 L (39.0-53.0) % Glucose 134 H (74-99) mg/dL POC Glucose (mg/dL) 199 H (70-110) mg/dL ALT 75 H (4-49) U/L Alkaline Phosphatase 190 H (38-126) U/L Microbiology - Last 24 Hours (Table) 03/11/22 15:08 Blood Culture - Preliminary Blood No Growth after 96 hours Assessment and Plan Assessment: This is a 46-year-old gentleman with weakness of the right side initially started about 8 days prior to arrival, that is progressively worsened. Also had chest pain for the past 8 days. Acute to subacute ischemic stroke (feel more subacute). Rght sided hemiparesis and started about 8 days. Etiology seems embolic (artery to artery vs cardiac). Left ICA occlusion STEMI Impaired left ventricular function with ejection fraction of 35-40% Diabetes mellitus Hypertension Tobacco use Family history of coronary artery disease. Plan: Continue aspirin 81 mg daily as well as Plavix 75 mg daily (both newly started) for secondary stroke prophylaxis. Also on Lipitor 80mg daily. Consulted vascular surgery team for carotid stenosis. No intervention for Left ICA since is completely occluded and they recommended outpatient surveillance of right ICA. HbA1c 6.4, well controlled. PT OT and SOCIAL SECURITY BENEFITS INTERVIEWER are consulted. PMNR consult noted. Patient good candidate for inpatient rehab. Patient wants to go home, however. Patient underwent cardiac catheterization 03/14/2022 with successful stenting of the proximal LAD with reduction of stenosis from 95% to 0%. Per cardiology, continue aspirin and Plavix for 1 year with no interruption. Aggressive coronary risks modification. Recommend patient undergo YING and an event monitor placement before discharge. Patient does not want to stay any longer, wants to go home. He understands the risks of not having YING done in the hospital including potential for recurrent strokes. He will follow up with Dr. Olson as an outpatient to be considered for YING. Patient undergoing event monitor placement before discharge, and the results to be followed up by Dr Olson. Telemetry monitoring so far showing sinus rhythm, with some PVCs, no arrhythmia. Patient is counseled on tobacco cessation. For DVT prophylaxis: Patient on heparin subcu every 12 hours.
[2022-03-16 16:17] LABS: Glucose,Whole Blood 266 mg/dL (70-110)
--- NOTE | 2022-03-16 21:40 | DS ---
DISCHARGE SUMMARY FINAL DIAGNOSES: 1. Acute stroke involving the left temporoparietal area causing right-sided stroke. 2. Acute ST-segment elevation anterior wall myocardial infarction, status post cardiac catheterization and stenting of the left anterior descending. 3. No evidence of any left ventricular thrombus. 4. Hypertension. 5. Diabetes mellitus, type 2. 6. Left carotid occlusion. 7. Multiple medical issues. 8. History of noncompliance. DISCHARGE DISPOSITION: The patient will be discharged in stable condition with guarded prognosis. Total time taken 35 minutes. HISTORY OF PRESENT ILLNESS: This is a 46-year-old gentleman admitted with multiple medical problems as listed. He was monitor closely. Cardiology performed cardiac cath and stenting. Inpatient rehab was recommended. Neurology saw the patient. Neurovascular workup was also done. The patient refused inpatient rehab admission, so the patient would like to go home. The patient will be discharged in stable condition and guarded prognosis. PHYSICAL EXAMINATION: VITAL SIGNS: Stable. CARDIOVASCULAR: S1, S2. ABDOMEN: Soft. NERVOUS SYSTEM: Right hemiplegia. DISCHARGE MEDICATIONS: The patient will be discharged with, 1. Plavix 75 mg p.o. daily. 2. Aspirin 81 mg daily. 3. Lipitor 80 mg daily. 4. Lopressor 50 mg p.o. b.i.d. Follow up with Dr. Carr, Cardiology, Vascular Surgery, and Neurology as recommended. Once again, the patient will be discharged in a stable condition with extremely guarded prognosis. Again, the patient is not willing to go to either inpatient rehab. MMODL / IJN: [id number] /
--- NOTE | 2022-03-17 08:41 | PN ---
PROGRESS NOTE SUBJECTIVE: Mr. Senior is doing well. Yesterday, he underwent a stenting of his LAD. Cardiac cath was performed by Dr. Olson, stenting performed by Dr. Camacho, he is doing well. The cath site is clean and dry. PHYSICAL EXAMINATION: VITAL SIGNS: Stable. NECK: No JVD. HEART: S1, S2 heard normally. LUNGS: Reveal decent air entry. ABDOMEN: Unchanged. LOWER EXTREMITY: Unchanged. PLAN: To discharge him, and he will see Dr. Olson in 1 week. He will go home on dual antiplatelet therapy. MMODL / IJN: [id number] /
== END 2022-03-16 17:22 | disposition home or self-care (01) | DRG 981 ==
LOC: CATHCVL 11:15 → 2SICU 13:20 → 3SCARD 03-12 16:43
PROVIDERS: ADMIT Hospitalist; ATTEND Hospitalist
PROC: B2111ZZ Fluoroscopy of Multiple Coronary Arteries using Low Osmolar Contrast (ICD-10-PCS; principal; 2022-03-14 12:24)
PROC: 027034Z Dilation of Coronary Artery, One Artery with Drug-eluting Intraluminal Device, Percutaneous Approach (ICD-10-PCS; principal; 2022-03-14 12:24)
PROC: 4A023N7 Measurement of Cardiac Sampling and Pressure, Left Heart, Percutaneous Approach (ICD-10-PCS; principal; 2022-03-14 12:24)
DX: I63.9 Cerebral infarction, unspecified (principal); I21.02 ST elevation (STEMI) myocardial infarction involving left anterior descending coronary artery; G81.91 Hemiplegia, unspecified affecting right dominant side; I65.22 Occlusion and stenosis of left carotid artery; I25.10 Atherosclerotic heart disease of native coronary artery without angina pectoris; I25.5 Ischemic cardiomyopathy; F17.210 Nicotine dependence, cigarettes, uncomplicated; Z71.6 Tobacco abuse counseling; Z91.81 History of falling; R26.9 Unspecified abnormalities of gait and mobility; I10 Essential (primary) hypertension; R29.711 NIHSS score 11; I25.2 Old myocardial infarction; Z79.82 Long term (current) use of aspirin; Z79.84 Long term (current) use of oral hypoglycemic drugs; Z79.890 Hormone replacement therapy; Z79.899 Other long term (current) drug therapy; Z82.49 Family history of ischemic heart disease and other diseases of the circulatory system; Z82.5 Family history of asthma and other chronic lower respiratory diseases; Z83.3 Family history of diabetes mellitus; Z91.199 Patient's noncompliance with other medical treatment and regimen due to unspecified reason; Z71.3 Dietary counseling and surveillance; Z91.040 Latex allergy status; Z88.0 Allergy status to penicillin; Z91.013 Allergy to seafood; Z53.09 Procedure and treatment not carried out because of other contraindication
CPT/HCPCS: 70450; 70496; 70498; 70551; 71045; 80048; 80053; 80061; 80306; 81003; 83036; 84484; 85025; 85610; 85730; 87040; 93005; 93270; 93306; 93458; 93880; 96365; 96366; 99285